=== PATIENT | female | born 1985 | race Caucasian/White ===

== ENCOUNTER 2016-05-05 11:59 | Emergency (ER) | payer OTHER ==
[2016-05-05 14:39] VITALS: BP 137/78
--- NOTE | 2016-05-05 14:58 | UC ---
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 only painful when she is working when she is not at work pain resolves hasn't taken any medication for pain - History of Current Complaint Chief Complaint: UCHeadache Stated Complaint: COUGH,SINUSES Time Seen by Provider: 05/05/16 14:47 Hx Obtained From: Patient Hx Last Menstrual Period: 3 weeks - Allergies/Home Medications Allergies/Adverse Reactions: Allergies Allergy/AdvReac Type Severity Reaction Status Date / Time Hydrocodone Allergy Intermediate ITCHY, Verified 05/05/16 14:39 DISORIENTATION Oxycodone Allergy Intermediate ITCHING Verified 05/05/16 14:39 AND DISOREINTATION Home Medications: Home Medications Ibuprofen TAB* [Motrin TAB* 800 MG] 800 mg PO ONCE PRN 05/05/16 [History Confirmed 05/05/16] PMH/Surg Hx/FS Hx/Imm Hx Previously Healthy: Yes Endocrine History Of: Denies: Diabetes, Thyroid Disease Cardiovascular History Of: Denies: Cardiac Disorders, Hypertension, Pacemaker/ICD Respiratory History Of: Reports: Asthma - exercise induced Denies: COPD GI/ History Of: Denies: Ulcer, Renal Disease - Surgical History Surgical History: Yes Surgery Procedure, Year, and Place: right breast biopsy - 03/22/13; cervical widening 12/05/15; - Family History Known Family History: Positive: None, Cardiac Disease - Social History Occupation: Employed Full-time Lives: With Family Alcohol Use: Occasionally Substance Use Type: None Smoking Status (MU): Never Smoked Tobacco Review of Systems Constitutional: Negative Skin: Negative Eyes: Negative ENT: Sore Throat, Ear Ache, Nasal Discharge Respiratory: Cough Cardiovascular: Negative Gastrointestinal: Negative Genitourinary: Negative Motor: Negative Neurovascular: Negative Musculoskeletal: Other: - right leg pain Neurological: Negative Psychological: Negative All Other Systems Reviewed And Are Negative: Yes Physical Exam Triage Information Reviewed: Yes Appearance: No Pain Distress, Well-Nourished Vital Signs: Initial Vital Signs Temp 98.3 F 05/05/16 14:30 Pulse 84 05/05/16 14:30 Resp 18 05/05/16 14:30 BP 137/78 05/05/16 14:30 Pulse Ox 98 05/05/16 14:30 Vital Signs Reviewed: Yes Eyes: Positive: Conjunctiva Clear, Other: - right lower lid with small stye ENT: Positive: Pharyngeal erythema, Nasal congestion, Nasal drainage, TM bulging , Other: - frontal sinus tenderess. Negative: TM red, Tonsillar swelling, Tonsillar exudate Neck: Positive: No Lymphadenopathy Respiratory: Positive: Lungs clear, Normal breath sounds, No respiratory distress Cardiovascular: Positive: RRR, No Murmur, Pulses Normal Abdomen Description: Positive: Nontender, Soft Bowel Sounds: Positive: Present Musculoskeletal: Positive: No Edema, Other: - RLE- full ROM, non tender Neurological: Positive: Alert Psychological Exam: Normal Skin Exam: Normal Throat Pain/Nasal Course/Dx - Course Course Of Treatment: exam completed - will treat for sinusitis. warm compress BID to stye. right leg pain not present at this time- recommend followup with PCP - Differential Dx/Diagnosis Differential Diagnosis/HQI/PQRI: Sinusitis, URI, Other - muscle strain Provider Diagnoses: sinusitis. right leg pain. stye in right eye Discharge - Discharge Plan Condition: Stable Disposition: HOME Prescriptions: Amoxicillin/Clavulanate TAB* [Augmentin TAB 875*] 875 mg PO BID #20 tab Patient Education Materials: Sinusitis (ED), Leg Pain (ED), Stye (ED) Referrals: [facility] [place] [facility] REFERR[facility] [Outside] Additional Instructions: Start antibiotic as directed Review your discharge instructions about sinusitis Your leg pain may be caused from working all day on your feet on concrete floor start wearing compression stockings while at work and take ibuprofen as needed for pain please call the physician referral number to find a primary care provider If your symptoms do not improve please call your primary care provider or return to urgent care
== END 2016-05-05 15:16 | disposition home or self-care (01) ==
LOC: UCCORT 11:59
DX: J32.1 Chronic frontal sinusitis (principal); M79.604 Pain in right leg; H00.012 Hordeolum externum right lower eyelid; Z88.5 Allergy status to narcotic agent; J45.990 Exercise induced bronchospasm
CPT/HCPCS: 99212; G0463

== ENCOUNTER 2016-08-19 09:26 | Emergency (ER) | payer SELFPAY ==
[2016-08-19 10:01] VITALS: BP 127/66
--- NOTE | 2016-08-19 10:30 | UC ---
Abdominal Pain Female HPI - HPI Summary HPI Summary: abdominal pain x 1 year, pain is at the epigastric area , dull pain, no radiation worse over the past few days , mild increase in pain when eating, no n/v/d/c , no urinary sx. - History of Current Complaint Chief Complaint: UCAbdominalPain Stated Complaint: ABD PAIN,FEVER Time Seen by Provider: 08/19/16 09:42 Hx Obtained From: Patient Hx Last Menstrual Period: 08/15/16 Onset/Duration: Gradual Onset, Lasting Weeks - lasting one year, Still Present, Worse Since - past 2 days Timing: Constant Severity Initially: Moderate Severity Currently: Moderate Location: Epigastric Radiates: No Character: Aching, Dull Aggravating Factor(s): Food Alleviating Factor(s): Nothing Associated Signs and Symptoms: Negative: Diaphoresis, Fever, Cough, Chest Pain, Dizzy, Back Pain, Constipation, Blood in Stool, Urinary Symptoms, Decreased Appetite, Vaginal Bleeding, Vaginal Discharge, Nausea, Vomiting, Diarrhea Allergies/Adverse Reactions: Allergies Allergy/AdvReac Type Severity Reaction Status Date / Time Hydrocodone Allergy Intermediate ITCHY, Verified 08/19/16 09:48 DISORIENTATION Oxycodone Allergy Intermediate ITCHING Verified 08/19/16 09:48 AND DISOREINTATION PMH/Surg Hx/FS Hx/Imm Hx Endocrine History Of: Denies: Diabetes, Thyroid Disease Cardiovascular History Of: Denies: Cardiac Disorders, Hypertension, Pacemaker/ICD Respiratory History Of: Reports: Asthma - exercise induced Denies: COPD GI/ History Of: Denies: Ulcer, Renal Disease - Surgical History Surgical History: Yes Surgery Procedure, Year, and Place: right breast biopsy - 03/22/13; cervical widening 12/05/15; - Family History Known Family History: Positive: None, Cardiac Disease - Social History Alcohol Use: Occasionally Substance Use Type: None Smoking Status (MU): Never Smoked Tobacco Review of Systems Constitutional: Negative Skin: Negative Eyes: Negative ENT: Negative Respiratory: Negative Gastrointestinal: Abdominal Pain Genitourinary: Negative All Other Systems Reviewed And Are Negative: Yes Physical Exam Triage Information Reviewed: Yes Appearance: Well-Appearing, Well-Nourished, Pain Distress Vital Signs: Initial Vital Signs Temp 97.8 F 08/19/16 09:40 Pulse 85 08/19/16 09:40 Resp 14 08/19/16 09:40 BP 127/66 08/19/16 09:40 Pulse Ox 100 08/19/16 09:40 Eye Exam: Normal Eyes: Positive: Conjunctiva Clear ENT: Positive: Normal ENT inspection, Hearing grossly normal, Pharynx normal Neck: Positive: Supple, Nontender, No Lymphadenopathy Respiratory: Positive: Chest non-tender, Lungs clear, Normal breath sounds Cardiovascular: Positive: RRR, No Murmur, Pulses Normal Abdomen Description: Positive: No Organomegaly, Soft, Other: - epigastric tenderness. Negative: CVA Tenderness (R), CVA Tenderness (L), Distended, Guarding Bowel Sounds: Positive: Present Skin Exam: Normal Abd Pain Female Course/Dx - Differential Dx/Diagnosis Provider Diagnoses: epigastric abdominal pain. gastritis Discharge - Discharge Plan Condition: Stable Disposition: HOME Prescriptions: Omeprazole 40 mg PO DAILY WITH MEAL #30 cap Patient Education Materials: Gastritis (ED) Referrals: No Primary Care Phys,NOPCP [Primary Care Provider] - 7 Days Additional Instructions: follow up with your pcp in one week
--- NOTE | 2016-08-19 11:48 | RAD ---
Indication: Abdominal pain, right upper quadrant pain. Real-time sonography of the right upper quadrant was performed. Liver is normal in size. No focal lesions or intrahepatic ductal dilatation is noted. The gallbladder demonstrates no gallstones, pericholecystic fluid or wall thickening. Common duct measures 2 mm. The right kidney measures 10.0 x 4.9 x 5.2 cm. No hydronephrosis is noted. The pancreatic head, neck and proximal body are unremarkable. Aorta and inferior vena cava are unremarkable. IMPRESSION: No evidence of cholelithiasis or biliary duct dilatation is noted.
== END 2016-08-19 12:01 | disposition home or self-care (01) ==
LOC: UCCORT 09:26
DX: R10.13 Epigastric pain (principal); K29.70 Gastritis, unspecified, without bleeding; J45.909 Unspecified asthma, uncomplicated; Z88.5 Allergy status to narcotic agent
CPT/HCPCS: 76705; 99212; G0463

== ENCOUNTER 2016-12-15 11:35 | Emergency (ER) | payer OTHER ==
[2016-12-15 11:50] VITALS: BP 115/72
--- NOTE | 2016-12-15 12:11 | UC ---
Abdominal Pain Female HPI - HPI Summary HPI Summary: epigastric abdominal pain x 6 month off and on , abdominal US normal in July , not improving with PPI - History of Current Complaint Chief Complaint: UCAbdominalPain Stated Complaint: MID LOWER ABDOMINAL PAIN Time Seen by Provider: 12/15/16 11:51 Hx Obtained From: Patient Hx Last Menstrual Period: 11/28/16 ?: No Onset/Duration: Gradual Onset, Lasting Weeks Timing: Intermittent Episodes Lasting: - 3 hrs Severity Initially: Severe Severity Currently: Moderate Location: Epigastric Radiates: No Character: Burning, Sharp Aggravating Factor(s): Food Alleviating Factor(s): Nothing Associated Signs and Symptoms: Negative: Diaphoresis, Fever, Cough, Chest Pain, Dizzy, Back Pain, Constipation, Blood in Stool, Urinary Symptoms, Decreased Appetite, Vaginal Bleeding, Vaginal Discharge, Nausea, Vomiting, Diarrhea Allergies/Adverse Reactions: Allergies Allergy/AdvReac Type Severity Reaction Status Date / Time Hydrocodone Allergy Intermediate ITCHY, Verified 12/15/16 11:50 DISORIENTATION Oxycodone Allergy Intermediate ITCHING Verified 12/15/16 11:50 AND DISOREINTATION Home Medications: Home Medications NK [No Home Medications Reported] 12/15/16 [History Confirmed 12/15/16] PMH/Surg Hx/FS Hx/Imm Hx Respiratory History: Asthma - Surgical History Surgical History: Yes Surgery Procedure, Year, and Place: right breast biopsy - 03/22/13; cervical widening 12/05/15; - Family History Known Family History: Positive: None, Cardiac Disease - Social History Alcohol Use: Occasionally Substance Use Type: None Smoking Status (MU): Never Smoked Tobacco - Immunization History Most Recent Influenza Vaccination: no Review of Systems Constitutional: Negative Skin: Negative Eyes: Negative ENT: Negative Respiratory: Negative Gastrointestinal: Abdominal Pain Is Patient Immunocompromised?: No All Other Systems Reviewed And Are Negative: Yes Physical Exam Triage Information Reviewed: Yes Appearance: Well-Appearing, No Pain Distress, Well-Nourished Vital Signs: Initial Vital Signs Temp 97.5 F 12/15/16 11:45 Pulse 79 12/15/16 11:45 Resp 14 12/15/16 11:45 BP 115/72 12/15/16 11:45 Pulse Ox 100 12/15/16 11:45 Vital Signs Reviewed: Yes Eye Exam: Normal Eyes: Positive: Conjunctiva Clear ENT: Positive: Normal ENT inspection, Hearing grossly normal, Pharynx normal Neck: Positive: Supple, Nontender, No Lymphadenopathy Respiratory: Positive: Chest non-tender, Lungs clear, Normal breath sounds Cardiovascular: Positive: RRR, No Murmur, Pulses Normal Abdomen Description: Positive: No Organomegaly, Soft, Other: - epigastric tenderness. Negative: CVA Tenderness (R), CVA Tenderness (L), Distended, Guarding Bowel Sounds: Negative: Present Musculoskeletal Exam: Normal Skin Exam: Normal Abd Pain Female Course/Dx - Differential Dx/Diagnosis Provider Diagnoses: epigastric abdominal pain Discharge - Discharge Plan Condition: Stable Disposition: HOME Patient Education Materials: Chronic Abdominal Pain (ED) Referrals: Jaron Pike MD [Medical Doctor] - No Primary Care Phys,NOPCP [Primary Care Provider] - Additional Instructions: chronic abdominal pain , normal abd US , not improving with PPI please call the GI MD krishna for eval and tx.
== END 2016-12-15 12:30 | disposition home or self-care (01) ==
LOC: UCCORT 11:35
DX: R10.13 Epigastric pain (principal); Z32.02 Encounter for pregnancy test, result negative; J45.909 Unspecified asthma, uncomplicated; Z88.5 Allergy status to narcotic agent
CPT/HCPCS: 81003; 84702; 99211; G0463

== ENCOUNTER 2017-02-25 15:10 | Emergency (ER) | payer OTHER ==
--- NOTE | 2017-02-25 16:16 | UC ---
Lower Extremity/Ankle HPI - HPI Summary HPI Summary: 31 year old female presents with left heel pain. - History of Current Complaint Stated Complaint: LEFT HEEL INJ Time Seen by Provider: 02/25/17 16:15 Hx Obtained From: Patient Hx Last Menstrual Period: 11/28/16 Onset/Duration: Sudden Onset Severity Initially: Moderate Severity Currently: Moderate Pain Scale Used: 0-10 Numeric - 5 - Allergies/Home Medications Allergies/Adverse Reactions: Allergies Allergy/AdvReac Type Severity Reaction Status Date / Time Hydrocodone Allergy Intermediate ITCHY, Verified 02/25/17 16:21 DISORIENTATION Oxycodone Allergy Intermediate ITCHING Verified 02/25/17 16:21 AND DISOREINTATION Home Medications: Home Medications Ibuprofen TAB* [Motrin TAB* 800 MG] 800 mg PO ONCE PRN 02/25/17 [History Confirmed 02/25/17] PMH/Surg Hx/FS Hx/Imm Hx Previously Healthy: Yes - Surgical History Surgical History: Yes Surgery Procedure, Year, and Place: right breast biopsy - 03/22/13; cervical widening 12/05/15; - Family History Known Family History: Positive: None, Cardiac Disease - Social History Alcohol Use: Occasionally Substance Use Type: None Smoking Status (MU): Never Smoked Tobacco - Immunization History Most Recent Influenza Vaccination: no Review of Systems Constitutional: Negative Skin: Negative Eyes: Negative ENT: Negative Respiratory: Negative Cardiovascular: Negative Gastrointestinal: Negative Genitourinary: Negative Motor: Negative Neurovascular: Negative Musculoskeletal: Other: - left heel pain Neurological: Negative Psychological: Negative All Other Systems Reviewed And Are Negative: Yes Physical Exam Triage Information Reviewed: Yes Vital Signs Reviewed: Yes Eye Exam: Normal ENT Exam: Normal Dental Exam: Normal Neck exam: Normal Neck: Positive: 1 Respiratory Exam: Normal Cardiovascular Exam: Normal Abdominal Exam: Normal Musculoskeletal: Positive: Other: - left heel pain left plantar ligament pain Neurological Exam: Normal Psychological Exam: Normal Skin Exam: Normal Lower Extremity Course/Dx - Differential Dx/Diagnosis Provider Diagnoses: left plantar ligament pain. heel spur Discharge - Discharge Plan Condition: Stable Disposition: HOME Prescriptions: Methylprednisolone [Medrol Dosepak 4 MG*] 4 mg PO .SEE RODOLFO INSTRUCTION #21 tab Patient Education Materials: Plantar Fasciitis (ED), Heel Spur (ED) Referrals: José Antonio Prakash [Physical Therapist] - No Primary Care Phys,NOPCP [Primary Care Provider] -
[2017-02-25 16:21] VITALS: BP 130/65
--- NOTE | 2017-02-25 16:50 | RAD ---
INDICATION: Calcaneal pain. No trauma. COMPARISON: None TECHNIQUE: AP, lateral, and oblique views were obtained. FINDINGS: There are no acute bony findings. There is a small Achilles calcaneal spur. There is presumed soft tissue artifact on one image is likely related to ointment on the skin. IMPRESSION: NO ACUTE BONY FINDINGS. SMALL ACHILLES CALCANEAL SPUR.
== END 2017-02-25 17:08 | disposition home or self-care (01) ==
LOC: UCCORT 15:10
DX: M79.672 Pain in left foot (principal); M77.32 Calcaneal spur, left foot; Z88.5 Allergy status to narcotic agent
CPT/HCPCS: 99212; G0463

== ENCOUNTER 2017-03-17 14:44 | Emergency (ER) | payer OTHER ==
[2017-03-17 16:09] VITALS: BP 128/84
--- NOTE | 2017-03-17 16:11 | UC ---
Respiratory Complaint HPI - HPI Summary HPI Summary: 31 y/o female PMHX asthma presents to the urgent care c/o productive cough, nasal congestion, DAVID, chills, and low grade fever for the past week. Pt reports she is producing a green phlegm with streaks of blood. She also has a sore throat. Pain is 5/10 with swallowing. She has not taking anything to alleviate symptoms. Pt denies SOB, wheezing, chest pain, N/v/d, abdominal pain. LMP: 03/11 - History of Current Complaint Chief Complaint: UCRespiratory Stated Complaint: COLD/CHEST PRECIOUS Time Seen by Provider: 03/17/17 16:03 Hx Last Menstrual Period: 03/11/17 ?: No Onset/Duration: Gradual Onset, Lasting Weeks - 1 week, Still Present, Worse Since - yesterday Timing: Constant Severity Initially: Mild Severity Currently: Moderate Pain Intensity: 5 Pain Scale Used: 0-10 Numeric Character: Cough: Productive, Sputum Description: - green with streaks of blood Aggravating Factors: Recumbent Position Alleviating Factors: Nothing Associated Signs And Symptoms: Positive: Fever, Chills, Nasal Congestion, Sinus Discomfort. Negative: Wheezing - Risk Factors Pulmonary Embolism Risk Factors: Negative Cardiac Risk Factors: Negative Pseudomonas Risk Factors: Negative Tuberculosis Risk Factors: Negative - Allergies/Home Medications Allergies/Adverse Reactions: Allergies Allergy/AdvReac Type Severity Reaction Status Date / Time Hydrocodone Allergy Intermediate ITCHY, Verified 03/17/17 16:09 DISORIENTATION Oxycodone Allergy Intermediate ITCHING Verified 03/17/17 16:09 AND DISOREINTATION PMH/Surg Hx/FS Hx/Imm Hx Previously Healthy: Yes Respiratory History: Asthma - Surgical History Surgical History: Yes Surgery Procedure, Year, and Place: right breast biopsy - 03/22/13; cervical widening 12/05/15; - Family History Known Family History: Positive: Cardiac Disease, Diabetes - Social History Occupation: Employed Full-time Lives: With Family Alcohol Use: Occasionally Substance Use Type: None Smoking Status (MU): Never Smoked Tobacco - Immunization History Most Recent Influenza Vaccination: no Review of Systems Constitutional: Fever, Chills Skin: Negative Eyes: Negative ENT: Sore Throat, Ear Ache, Nasal Discharge Respiratory: Cough - productive with green phlegm Cardiovascular: Negative Gastrointestinal: Negative Genitourinary: Negative Motor: Negative Neurovascular: Negative Musculoskeletal: Negative Neurological: Negative Psychological: Negative Is Patient Immunocompromised?: No All Other Systems Reviewed And Are Negative: Yes Physical Exam Triage Information Reviewed: Yes Vital Signs: Initial Vital Signs Temp 97.7 F 03/17/17 16:05 Pulse 78 03/17/17 16:05 Resp 16 03/17/17 16:05 BP 128/84 03/17/17 16:05 Pulse Ox 100 03/17/17 16:05 - Additional Comments Vital Signs Reviewed: Yes General: well developed, well nourished female sitting in the examining table w/ o any apparent distress Eyes: Positive: Conjunctiva Clear - PERRLA, EOMI, fundi grossly normal ENT: Positive: Normal ENT inspection, Hearing grossly normal, Pharynx normal, Nasal congestion - edematous and erythematous nasal mucosa, Nasal drainage - yellowish drainage, TMs normal. Negative: Tonsillar swelling, Tonsillar exudate Neck: Positive: Supple, Nontender, No Lymphadenopathy Respiratory: no orthopnea or dyspnea. Able to speak in full sentences, no retractions or accessory muscle use, no tripod position, stridor, or head bobbing. breath sounds present bilaterally, B/L upper posterior lungs with scattered rhonchi, no wheezes, crackles, rales. Cardiovascular: Positive: RRR, No Murmur, Pulses Normal, Brisk Capillary Refill Abdomen Description: Positive: Nontender, No Organomegaly, Soft. Negative: CVA Tenderness (R), CVA Tenderness (L) Bowel Sounds: Positive: Present Musculoskeletal Exam: Normal Musculoskeletal: Positive: Strength Intact, ROM Intact, No Edema Neurological Exam: Normal Psychological Exam: Normal Skin Exam: Normal UC Diagnostic Evaluation - Laboratory O2 Sat by Pulse Oximetry: 100 Respiratory Course/Dx - Course Course Of Treatment: 31 y/o female PMHX asthma presents to the urgent care c/o productive cough, nasal congestion, DVAID, chills, and low grade fever for the past week. Pt reports she is producing a green phlegm with streaks of blood. She also has a sore throat. Pain is 5/10 with swallowing. She has not taking anything to alleviate symptoms. Pt denies SOB, wheezing, chest pain, N/V/D abdominal pain. LMP: 03/11/2017. Hx obtained. Pt with posterior B/L lungs with scattered rhonchi on examiantion. Chest X-ray ordered: impression:No cardiopulmonary disease observed. Pt with Acute bronchitis on examination. Pt Rx Z-rodolfo PO and Albuterol inhaler to alleviate bronchospasm. Pt advised to increase fluid intake and eat well. if not improvement or worsening of symptoms to return to the urgent care or f/u with PCP for further management. pt understood and agreed with plan of care. - Differential Dx/Diagnosis Differential Diagnosis/HQI/PQRI: Asthma, Bronchitis, Influenza, Laryngitis, Lower Resp Infection, Sinusitis, Other - URI, pharyngitis Provider Diagnoses: 1- Acute bronchits Discharge - Discharge Plan Condition: Stable Disposition: HOME Prescriptions: Albuterol HFA INHALER* [Ventolin HFA Inhaler*] 1 - 2 puff INH Q6H PRN #1 mdi PRN Reason: Cough Azithromyxin RODOLFO (NF) [Z-Rodolfo (Zithromax) 250 mg tabs #6] 2 tab PO .TODAY, THEN 1 DAILY #6 tab Benzonatate CAP* [Tessalon 100 MG CAP*] 100 mg PO TID #15 cap Patient Education Materials: Acute Bronchitis (ED) Forms: *Work Release Referrals: [facility] [place] [facility] REFERR[facility] [Outside] - 3 Days Additional Instructions: 1-Please take full course of antibiotic to avoid resistance. 2-Take Tessalon PO tabs as directed and use the albuterol inhaler to alleviate sough. Increase fluid intake, rest and eat well. 3- If symptoms do not improve or worsen or your develop SOB with fever and severe wheezing please go immediately to the ER further evaluation and treatment. 4- F/u with your PCP in 2-3 days for further management
--- NOTE | 2017-03-17 17:04 | RAD ---
INDICATION: Productive cough COMPARISON: January 27, 2011 TECHNIQUE: PA and lateral dual-energy views were obtained. FINDINGS: Bones/Soft Tissues: There are no acute bony findings. Cardiomediastinal: The cardiomediastinal silhouette is normal. Lungs: There are no infiltrates. Pleura: There are no pleural effusions. Other: None IMPRESSION: NO ACTIVE DISEASE.
== END 2017-03-17 17:27 | disposition home or self-care (01) ==
LOC: UCCORT 14:44
DX: J20.9 Acute bronchitis, unspecified (principal); J45.909 Unspecified asthma, uncomplicated; Z88.5 Allergy status to narcotic agent
CPT/HCPCS: 71020; 99211; G0463

== ENCOUNTER 2017-07-03 10:44 | Emergency (ER) | payer OTHER ==
[2017-07-03 11:04] VITALS: BP 116/64
--- NOTE | 2017-07-03 11:09 | UC ---
Neck Pain HPI - HPI Summary HPI Summary: Pt with upper back pain x 2 days. Pt states thinks lifted something but unsure Pain increased with movement. no cp, sob, abd pain No n/v/d no fever, chills Pt took 200mg Motrin with little relief No rash no paresthesia, weakness no direct trauma pt's medications reviewed this visit - History of Current Complaint Chief Complaint: UCGeneralIllness Stated Complaint: NECK PAIN 2 DAYS Time Seen by Provider: 07/03/17 10:59 Hx Obtained From: Patient Hx Last Menstrual Period: 06/15/17 ?: No Onset/Duration Of Injury/Symptoms: Days Mechanism Of Injury: No Known Trauma Pain Intensity: 8 - Allergies/Home Medications Allergies/Adverse Reactions: Allergies Allergy/AdvReac Type Severity Reaction Status Date / Time hydrocodone Allergy Itching Verified 07/03/17 10:59 And Disorientation oxycodone Allergy Itching Verified 07/03/17 10:59 and Disorientation PMH/Surg Hx/FS Hx/Imm Hx Previously Healthy: Yes - Surgical History Surgical History: Yes Surgery Procedure, Year, and Place: right breast biopsy - 03/22/13; cervical widening 12/05/15; - Family History Known Family History: Positive: None, Cardiac Disease, Diabetes - Social History Occupation: Employed Full-time Lives: With Family Alcohol Use: Occasionally Substance Use Type: None Smoking Status (MU): Never Smoked Tobacco - Immunization History Most Recent Influenza Vaccination: no Review Of Systems Constitutional: Positive: Negative Respiratory: Positive: Negative Gastrointestinal: Positive: Negative Musculoskeletal: Positive: Other: - back pain Neurological: Positive: Negative All Other Systems Reviewed And Are Negative: Yes Physical Exam Triage Information Reviewed: Yes Appearance: Well-Appearing, No Pain Distress Vital Signs: Initial Vital Signs Temp 97.5 F 07/03/17 11:00 Pulse 62 07/03/17 11:00 Resp 16 07/03/17 11:00 BP 116/64 07/03/17 11:00 Pulse Ox 100 07/03/17 11:00 Vital Signs Reviewed: Yes Eye Exam: Normal Eyes: Positive: Conjunctiva Clear ENT Exam: Normal ENT: Positive: Normal ENT inspection, Hearing grossly normal, Pharynx normal, TMs normal Dental Exam: Normal Neck exam: Normal Neck: Positive: Supple, Nontender, No Lymphadenopathy Respiratory Exam: Normal Respiratory: Positive: Chest non-tender, Lungs clear, Normal breath sounds, No respiratory distress, No accessory muscle use Cardiovascular Exam: Normal Cardiovascular: Positive: RRR, No Murmur Abdominal Exam: Normal Abdomen Description: Positive: Nontender, No Organomegaly Bowel Sounds: Positive: Present Musculoskeletal: Positive: Other: - No pain c/t/l/s Full AROM c spine mild paraspinal discomfort upper thoracis R>L Full AROM upper ext with mild discomfort in back Neurological Exam: Normal Psychological Exam: Normal Skin Exam: Normal Neck Pain Course/Dx - Course Course Of Treatment: pt with paraspinal thoracic muscle pain s/p lifting 2 days ago. pt underdosing analgesia. reviewed motrin/apap. heat. stretch. work note. PT referrral - Differential Dx/Diagnosis Provider Diagnoses: thoracis muscle strain Discharge - Sign-Out/Discharge Documenting (check all that apply): Discharge - Discharge Plan Condition: Stable Disposition: HOME Prescriptions: Cyclobenzaprine TAB* [Flexeril 10 MG TAB*] 5 mg PO BID PRN #10 tab PRN Reason: muscle spasm Ibuprofen TAB* [Motrin TAB* 600 MG] 600 mg PO Q6H PRN #30 tab PRN Reason: Pain Patient Education Materials: Neck Pain (ED) Forms: *Work Release Referrals: Cedrick Rivas PA [Primary Care Provider] - Additional Instructions: - Okay to alternate ibuprofen (Advil, Motrin) 600mg and Tylenol product (Tylenol ) every 3hours as needed for pain. Take with food. Do NOT take for more than 4- [address], operate machinery or drink alcohol while taking codeine This medication may cause constipation - use a stool softner as needed - use muscle relaxant as prescribed - this will likely cause drowsiness, use with caution - apply moist heat to your neck, 2-3 times a day. Once your muscles are warm, slow gentle stretching exercises -- schedule a follow-up appointment with physical therapy if your symptoms persist - if you develop weakness or tingling in your arms, fever, vomiting or any other concerns you should go straight to the emergency department for further evaluation and treatment - Billing Disposition and Condition Condition: STABLE Disposition: HOME
== END 2017-07-03 11:34 | disposition home or self-care (01) ==
LOC: UCCORT 10:44
DX: S29.011A Strain of muscle and tendon of front wall of thorax, initial encounter (principal); X50.0XXA Overexertion from strenuous movement or load, initial encounter; Y93.9 Activity, unspecified; Y92.9 Unspecified place or not applicable; Z88.5 Allergy status to narcotic agent
CPT/HCPCS: 99212; G0463

== ENCOUNTER 2018-01-13 12:59 | Emergency (ER) | payer OTHER ==
[2018-01-13] MEDS ORDERED: PROCHLORPERAZINE INJ 5 MG/ML 2 ML VIAL IV ONE (13:26)
[2018-01-13] MEDS ORDERED: NS 0.9% 1000 ML* 1,000 ML IV ONE (13:26)
[2018-01-13] MEDS ORDERED: diPHENhydraMINE IV* 50 MG/ML 1 ml VIAL (BENADRYL) IV ONE (13:26)
[2018-01-13] MEDS ORDERED: Dexamethasone IV* 4 MG/ML 1 ML (4 MG) IV SLOW PU ONE (13:33)
[2018-01-13 14:16] LABS: ABS Basophils 0.1 10^3/ul (0-0.2); ABS Eosinophils 0.1 10^3/ul (0-0.6); ABS Lymphocytes 2.5 10^3/ul (1.0-4.8); ABS Monocytes 0.9 10^3/ul (0-0.8); ABS Neutrophils 4.2 10^3/ul (1.5-7.7); ABS Nucleated RBC 0 10^3/ul; Hematocrit 37 % (35-47); Hemoglobin 12.8 g/dl (12.0-16.0); Lymphocyte % 32.5 % (25-47); Mean Corpuscular HGB Conc 34 g/dl (31-36); Mean Corpuscular Hemoglobin 29 pg (27-31); Mean Corpuscular Volume 83 fL (80-97); Mean Platelet Volume 7.8 um3 (7.4-10.4); Nucleated Red Blood Cells % 0; Platelet Count 329 10^3/ul (150-450); Red Blood Count 4.46 10^6/ul (4.00-5.40); Red Cell Distribution Width 13 % (10.5-15); White Blood Count 7.7 10^3/ul (3.5-10.8)
--- NOTE | 2018-01-13 14:42 | RAD ---
HISTORY: Headache COMPARISONS: None TECHNIQUE: Multiple contiguous axial CT scans were obtained of the head without intravenous contrast. FINDINGS: HEMORRHAGE/INFARCT: There is no hemorrhage or acute infarct. MASSES/SHIFT: There is no mass or shift. EXTRA-AXIAL SPACES: There are no extra-axial fluid collections. SULCI AND VENTRICLES: The sulci and ventricles are normal in size and position for the patient's stated age. CEREBRUM: There are no focal parenchymal abnormalities. BRAINSTEM: There are no focal parenchymal abnormalities. CEREBELLUM: There are no focal parenchymal abnormalities. VESSELS: The vessels are grossly normal. PARANASAL SINUSES: The paranasal sinuses are clear. ORBITS: The orbits are unremarkable. BONES AND SOFT TISSUE: No bone or soft tissue abnormalities are noted. OTHER: None IMPRESSION: NO ACUTE INTRACRANIAL PATHOLOGY.
[2018-01-13] MEDS ORDERED: Ketorolac INJ* 30 MG/ML 1 ML VIAL IV PUSH ONE (14:43)
[2018-01-13 14:51] LABS: EGFR Non-African American 129.8 (>60)
[2018-01-13 16:56] VITALS: BP 116/70
--- NOTE | 2018-01-13 17:16 | ED ---
Headache - HPI Summary HPI Summary: Patient is a 32-year-old female who presents emergency department for diffuse headache 4 days. Patient states she does have history of headaches and headache today feels similar. She states started 4 days ago was maximal intensity at onset. She admits to photophobia, blurred vision and nausea. She states that she was recently diagnosed with a likely pituitary tumor as her prolactin has been high. She recently saw surveyor geodetic, Dr. Cedeño, and is scheduled for an MRI in 2 days. Symptoms are moderate in severity. Lights and noise make symptoms worse. Nothing makes symptoms better. Denies past medical history otherwise. - History Of Current Complaint Chief Complaint: EDHeadache Stated Complaint: HEAD PAIN Time Seen by Provider: 01/13/18 13:06 Hx Obtained From: Patient, Family/Cosmetic Surgeon Hx Last Menstrual Period: 06/15/17 - Allergies/Home Medications Allergies/Adverse Reactions: Allergies Allergy/AdvReac Type Severity Reaction Status Date / Time hydrocodone Allergy Itching Verified 01/13/18 13:04 And Disorientation oxycodone Allergy Itching Verified 01/13/18 13:04 and Disorientation PMH/Surg Hx/FS Hx/Imm Hx Previously Healthy: Yes Endocrine/Hematology History: Denies: Hx Diabetes, Hx Thyroid Disease Cardiovascular History: Denies: Hx Hypertension, Hx Pacemaker/ICD Respiratory History: Reports: Hx Asthma - exercise induced Denies: Hx Chronic Obstructive Pulmonary Disease (COPD) GI History: Denies: Hx Ulcer History: Denies: Hx Renal Disease Sensory History: Denies: Hx Hearing Aid Neurological History: Reports: Other Neuro Impairments/Disorders - PAIN CLINIC PATIENT Psychiatric History: Denies: Hx Panic Disorder - Surgical History Surgery Procedure, Year, and Place: right breast biopsy - 03/22/13; cervical widening 12/05/15; Infectious Disease History: No Infectious Disease History: Denies: Hx Clostridium Difficile, Hx Hepatitis, Hx Human Immunodeficiency Virus (HIV), Hx of Known/Suspected MRSA, Hx Shingles, Hx Tuberculosis, Hx Known/ Suspected VRE, Hx Known/Suspected VRSA, History Other Infectious Disease, Traveled Outside the [place] in Last 30 Days - Family History Known Family History: Positive: None, Cardiac Disease, Diabetes - Social History Occupation: Employed Full-time Lives: With Family Alcohol Use: Occasionally Substance Use Type: Reports: None Smoking Status (MU): Never Smoked Tobacco Review of Systems Constitutional: Negative Negative: Fever, Chills Positive: Photophobia, Blurred Vision ENT: Negative Cardiovascular: Negative Positive: Shortness Of Breath Positive: Nausea. Negative: Abdominal Pain, Vomiting Genitourinary: Negative Positive: Headache. Negative: Weakness, Paresthesia, Numbness, Syncope, Slurred Speech All Other Systems Reviewed And Are Negative: Yes Physical Exam Triage Information Reviewed: Yes Vital Signs On Initial Exam: Initial Vitals Temp Pulse Resp BP Pulse Ox 98.2 F 80 18 129/89 99 01/13/18 13:01 01/13/18 13:01 01/13/18 13:01 01/13/18 13:01 01/13/18 13:01 Vital Signs Reviewed: Yes Appearance: Positive: Well-Nourished - Pt. lying in bed with pillow over eyes. Appears uncomfortable but nontoxic. Skin: Positive: Warm, Dry Head/Face: Positive: Normal Head/Face Inspection Eyes: Positive: Normal, EOMI, SELWYN, Conjunctiva Clear ENT: Positive: Pharynx normal, TMs normal Neck: Positive: Supple. Negative: Nuchal Rigidity Respiratory/Lung Sounds: Positive: Clear to Auscultation, Breath Sounds Present Cardiovascular: Positive: Normal, RRR Neurological: Positive: Normal, Alert, Oriented to Person Place, Time, CN Intact II-III, Normal Gait, Facial Symmetry, Speech Normal. Negative: Facial Droop, Ataxic Gait Psychiatric: Positive: Affect/Mood Appropriate - [place] Coma Scale Best Eye Response: 4 - Spontaneous Best Motor Response: 6 - Obeys Commands Best Verbal Response: 5 - Oriented Coma Scale Total: 15 Diagnostics - Vital Signs Vital Signs Temp Pulse Resp BP Pulse Ox 01/13/18 16:55 97.2 F 76 16 116/70 98 01/13/18 13:01 98.2 F 80 18 129/89 99 - Laboratory Lab Results: Lab Results 01/13/18 01/13/18 Range/Units 13:46 13:46 WBC 7.7 (3.5-10.8) 10^3/ul RBC 4.46 (4.00-5.40) 10^6/ul Hgb 12.8 (12.0-16.0) g/dl Hct 37 (35-47) % MCV 83 (80-97) fL MCH 29 (27-31) pg MCHC 34 (31-36) g/dl RDW 13 (10.5-15) % Plt Count 329 (150-450) 10^3/ul MPV 7.8 (7.4-10.4) um3 Neut % (Auto) 54.6 (38-83) % Lymph % (Auto) 32.5 (25-47) % [place] % (Auto) 11.2 H (0-7) % Eos % (Auto) 1.0 (0-6) % Baso % (Auto) 0.7 (0-2) % Absolute Neuts (auto) 4.2 (1.5-7.7) 10^3/ul Absolute Lymphs (auto) 2.5 (1.0-4.8) 10^3/ul Absolute Monos (auto) 0.9 H (0-0.8) 10^3/ul Absolute Eos (auto) 0.1 (0-0.6) 10^3/ul Absolute Basos (auto) 0.1 (0-0.2) 10^3/ul Absolute Nucleated RBC 0 10^3/ul Nucleated RBC % 0 Sodium 139 (135-145) mmol/L Potassium 4.0 (3.5-5.0) mmol/L Chloride 108 (101-111) mmol/L Carbon Dioxide 27 (22-32) mmol/L Anion Gap 4 (2-11) mmol/L BUN 10 (6-24) mg/dL Creatinine 0.55 (0.51-0.95) mg/dL Est GFR ( Amer) 157.0 (>60) Est GFR (Non-Af Amer) 129.8 (>60) BUN/Creatinine Ratio 18.2 (8-20) Glucose 111 H (70-100) mg/dL Calcium 8.9 (8.6-10.3) mg/dL Total Bilirubin 0.30 (0.2-1.0) mg/dL AST 12 L (13-39) U/L ALT 9 (7-52) U/L Alkaline Phosphatase 47 (34-104) U/L Total Protein 6.9 (6.4-8.9) g/dL Albumin 4.1 (3.2-5.2) g/dL Globulin 2.8 (2-4) g/dL Albumin/Globulin Ratio 1.5 (1-3) Result Diagrams: 01/13/18 13:46 01/13/18 13:46 Lab Statement: Any lab studies that have been ordered have been reviewed, and results considered in the medical decision making process. Headache Course/Dx - Course Course Of Treatment: Pt. presenting for evaluation of headache. She is afebrile stable vital signs. She has no neurological deficits on exam. Patient 's symptoms are most consistent with a migraine headache, given concern for patient to pituitary tumor. We'll give migraine cocktail and obtain head CT to rule out bleed or other acute pathology and basic labs.\. Labs and CT scan are unremarkable. I spoke with Dr. Cedeño who recommends MRI of the brain today for able to get it. MRI was ordered but corn lab technician called and stated that patient is scheduled for MRI at another MRI facility because it is better for pituitary evaluation. This was discussed with Dr. cedeño who agrees to wait till Thursday for MRI. He also would like patient to start clofazimine he has rx. Reexamination patient is moving around the room and appears to be more comfortable. She states her headache is improved but is still present mildly. Results were discussed. She is comfortable being discharged home to follow up with MRI on Thursday. She will start new medication as directed. Advised to return to the ear symptoms change or worsen. - Diagnoses Differential Diagnosis/HQI/PQRI: Meningitis, Migraine, Sinus Headache, Subarachnoid Hemorrhage, Tension Headache, Viral Syndrome Provider Diagnoses: Cephalgia Discharge - Sign-Out/Discharge Documenting (check all that apply): Patient Departure - Discharge Plan Condition: Good Disposition: HOME Patient Education Materials: Pituitary Adenoma (ED), General Headache (ED) Forms: *Work Release Referrals: Nacho Cedeño MD [Medical Doctor] - Cedrick Rivas PA [Primary Care Provider] - Additional Instructions: MRI Thursday as scheduled Follow up with Dr. Cedeño as scheduled Return to ER if symptoms change or worsen - Billing Disposition and Condition Condition: GOOD Disposition: Home
== END 2018-01-13 16:55 | disposition home or self-care (01) ==
LOC: ED 12:59
DX: R51 Headache (principal); R06.02 Shortness of breath; R11.0 Nausea; H53.8 Other visual disturbances
CPT/HCPCS: 36415; 70450; 80053; 85025; 96374; 96375; 99284; J0780; J1100; J1200; J1885

== ENCOUNTER 2018-04-22 11:31 | Emergency (ER) | payer OTHER ==
--- OUTSIDE RECORDS SUMMARY | 2018-04-22 12:11 | XMS REPORT | Continuity of Care Document ---
:1985 External Reference #:[id number] Author Name Amy Bullard NP Address [address] [place] [id number] Care Team Providers Name Role Phone Jaspreet Malhotra MD Primary Care Physician Unavailable Payers Type Date Identification Numbers Payment Provider Subscriber Policy Number: [id number] [employer] Juana Shaji PayID: [id number] Pob [id number] [place] [address] Expires: 2015 Policy Number: [id number] Medicaid Pe ([facility]) Juana Shaji PayID: [id number] [address] [place] [address] Advance Directives Description No Information Available Problems Date Description Provider Status Onset: 08/23/2014 Asthma Lolita Cruz NP Active Onset: 03/29/2018 Hyperpituitarism Amy Bullard NP Active Family History Date Family Member(s) Problem(s) Comments General Cancer MGM , hx of cancer, type unknown Father Alive little contact Mother Alive Siblings 1 brother heroin addict Social History Type Date Description Comments Sex Female Education Highest level completed, 9th grade Marital Status Legal Status: Never Work Status Part-Time Employment [employer]. ETOH Use Currently consumes alcohol Tobacco Use Start: Unknown Patient has never smoked Recreational Drug Use Denies Drug Use Tattoo/Piercing Negative For Tattoo Tattoo/Piercing Pierced ears Sun Exposure Uses sunscreen sometimes Condom Use Occasionally Contraceptive Methods Past methods include patch ([facility]) Contraceptive Methods Past methods include ring (Nuva) Age 1st [place] 17 Years Old STD's HPV 2005 STD's Chlamydia 2007 STD's Gonorrhea 2007 Allergies, Adverse Reactions, Alerts Date Description Reaction Status Severity Comments 02/14/2015 Hydrocodone Active 07/18/2014 NKDA Inactive Medications Medication Date Status Form Strength Qnty SIG Indications Ordering Provider Anxiety/Depress 03/29/ Active In [facility] ion Medication 2018 MD Jack Metronidazole 03/29/ Active Tablets 500mg 14tabs one tab by N76.0 In [facility] 2018 mouth twice MD Jack daily x 7 days no etoh Plan B One-Step 12/03/ Active Tablets 1.5mg 1 tab by In [facility] 2016 mouth now MD Jack Nuvaring 11/28/ Active Ring 0.12-0.015 3units insert Genoveva Robin 2016 mg/24HR vaginally Francisca, monthly MARZIPAN MAKER remove in 3 weeks as directed Plan B One-Step 10/02/ Active Tablets 1.5mg 1 tab by Z30.40 In [facility] 2015 mouth now MD Jack Oxycodone HCL / Active Unknown 0000 Metronidazole 05/07/ Hx Tablets 500mg 14tabs take 1 tab N76.0 In [facility] 2015 - twice a day MD Jack 03/29/ by mouth 2018 daily for 7 days Plan B One-Step 09/19/ Hx Tablets 1.5mg 2tabs 1 tab by Z30.012 Lolita 2014 - mouth as one Servies, 05/07/ dose as MARZIPAN MAKER 2016 needed Nuvaring 09/19/ Hx Ring 0.12-0.015 3units insert Z30.40 Lolita 2014 - mg/24HR vaginally Servies, 05/07/ per MARZIPAN MAKER 2016 directions Metronidazole 08/23/ Hx Tablets 500mg 14tabs 1 tab by N76.0 Lolita 2014 - mouth twice Servies, 05/07/ a day MARZIPAN MAKER 2016 Diflucan 07/18/ Hx Tablets 150mg 1tabs 1 tablet by Lolita 2014 - mouth as one Servies, 02/14/ dose. MARZIPAN MAKER 2014 Medications Administered in Office Medication Date Status Form Strength Qnty SIG Indications Ordering Provider Emergency 10/02/ Administered Injection Amy Contraceptive 2015 TAIWO Bullard Emergency 09/19/ Administered Injection Lolita Contraceptive 2014 TAIWO Cruz Emergency 02/27/ Administered Injection Telma Contraceptive 2013 Jacky, RN Immunizations Description No Information Available Vital Signs Date Vital Result Comment 10/03/2015 2:08pm BP Systolic 90 mmHg BP Diastolic 60 mmHg Height 62.75 inches 5'2.75" Weight 157.00 lb BMI (Body Mass Index) 28.0 kg/m2 09/03/2015 2:16pm BP Systolic 102 mmHg BP Diastolic 68 mmHg Weight 160.00 lb 05/07/2015 5:55pm BP Systolic 100 mmHg BP Diastolic 66 mmHg Height 62.75 inches 5'2.75" Weight 159.00 lb BMI (Body Mass Index) 28.4 kg/m2 Last Menstrual Period [id number] 02/14/2015 2:16pm BP Systolic 100 mmHg BP Diastolic 62 mmHg Height 62.75 inches 5'2.75" Weight 157.00 lb BMI (Body Mass Index) 28.0 kg/m2 Last Menstrual Period [id number] 09/19/2014 3:27pm BP Systolic 98 mmHg BP Diastolic 52 mmHg Height 62.75 inches 5'2.75" Weight 151.00 lb BMI (Body Mass Index) 27.0 kg/m2 Last Menstrual Period [id number] 08/23/2014 2:43pm BP Systolic 98 mmHg BP Diastolic 50 mmHg Height 62.75 inches 5'2.75" Weight 152.00 lb BMI (Body Mass Index) 27.1 kg/m2 Last Menstrual Period [id number] Results Test Date Facility Test Result H/L Range Note Wet Prep.... 03/29/2018 [facility] WBC Smear few Clue Cells Vag Fluid Wet Prep many Valerie Wet Prep neg Lactobacillus Wet Prep neg Whiff Wet Prep pos Bacteria Wet Prep na PH Wet Prep 6 Misc Other Test no tric Urinalysis DIP Only.... 10/04/2015 [facility] Urine Leukocyte Esterase QN + Urine Nitrite QN N Urine Blood N Urine PH 6.0 Urine Protein Random N Urine Ketone Random N Urine Glucose QN Random N Laboratory test 10/04/2015 [facility] Test neg finding Urine..... Chlam 09/05/2015 [facility] C.Trachomatis NOT DETECTED Not Detected 1 Trach/Neisseria Rna,Tma Gonorroeae Rna Tma N.Gonorrhoeae Rna,Tma NOT DETECTED Not Detected 2 Laboratory test finding 09/03/2015 [facility] Test Urine..... neg Urinalysis DIP Only.... 09/03/2015 [facility] Urine Leukocyte Esterase QN neg Urine Nitrite QN neg Urine Blood neg Urine PH 5.0 Urine Protein Random neg Urine Ketone Random neg Urine Glucose QN Random neg Urinalysis DIP Only.... 05/07/2015 [facility] Urine Leukocyte Esterase QN N Urine Nitrite QN N Urine Blood N Urine PH 6 Urine Protein Random Tr Urine Ketone Random Tr Urine Glucose QN Random N Laboratory test 05/07/2015 [facility] Test neg finding Urine..... Chlam 05/07/2015 [facility] C.Trachomatis NOT DETECTED Not Detected 3 Trach/Neisseria Rna,Tma Gonorroeae Rna Tma N.Gonorrhoeae Rna,Tma NOT DETECTED Not Detected 4 Thinprep Pap Form Setter Steel Pan Forms 02/14/2015 [facility] Results SEE NOTE 5 W/RFX HPV Mrna E6/E7 Chlam 02/14/2015 [facility] C.Trachomatis NOT DETECTED Not Detected 6 Trach/Neisseria Rna,Tma Gonorroeae Rna Tma N.Gonorrhoeae Rna,Tma NOT DETECTED Not Detected 7 [place] Annual Lab Set 02/14/2015 [facility] HGB Blood.... 13.2 Urinalysis DIP Only.... 02/14/2015 [facility] Urine Leukocyte Esterase QN N Urine Nitrite QN N Urine Blood N Urine PH 7.0 Urine Protein Random Tr Urine Ketone Random Tr Urine Glucose QN Random N Laboratory test finding 02/14/2015 [facility] HIV Rapid... non reactive Wet Prep.... 09/19/2014 [facility] WBC Smear 10-12 Clue Cells Vag Fluid Wet Prep neg Valerie Wet Prep positive Lactobacillus Wet Prep + Whiff Wet Prep neg Bacteria Wet Prep neg PH Wet Prep 4.5 Misc Other Test n/a Laboratory test 08/23/2014 [facility] C.Trachomatis NOT DETECTED Not Detected 8 finding Rna,Tma W/RFX N.Gonorrhoeae Rna,Tma Laboratory test 08/23/2014 [facility] Test negative finding Urine..... 1 This test was performed using the APTIMA COMBO2(R) Assay (GEN-PROBE(R). The analytical performance characteristics of this assay, when used to test SurePath(R) specimens have been determined by [facility]. 2 This test was performed using the APTIMA COMBO2(R) Assay (GEN-PROBE(R). The analytical performance characteristics of this assay, when used to test SurePath(R) specimens have been determined by [facility]. No collection date was received. We have used the date the specimen was received by [facility] as the collection date. If this is incorrect, please contact us at [phone]. 3 This test was performed using the APTIMA COMBO2(R) Assay (GEN-PROBE(R). The analytical performance characteristics of this assay, when used to test SurePath(R) specimens have been determined by [facility]. 4 This test was performed using the APTIMA COMBO2(R) Assay (GEN-PROBE(R). The analytical performance characteristics of this assay, when used to test SurePath(R) specimens have been determined by [facility]. 5 GYNECOLOGICAL CYTOLOGY REPORT Thinprep TIS PAP w/rfx to HPV E6/E7 REPORT STATUS: FINAL CLINICAL INFORMATION: Information not provided LMP: 01-22-15 SLIDES / SOURCE: 1 / Cervix, Endocervix STATEMENT OF ADEQUACY: Satisfactory for evaluation. Endocervical/transformation zone component present. INTERPRETATION/RESULT: Negative for intraepithelial lesion or malignancy. Reactive cellular changes associated with repair. Shift in vaginal aron suggestive of bacterial vaginosis. COMMENT: This Pap test has been evaluated with computer assisted technology. BAND SPLITTER: MERRILL REICH(ASCP) For informational Purposes: All cytology specimens are processed and screened at [facility]. [address] [place] [id number], PCJ, [facility]) For informational Purposes: All cytology specimens are processed and screened at [facility]. [address] [place] [id number] PATHOLOGIST: Ender Barber MD, Board Certified in Anatomic Pathology and Cytopathology (electronic signature) For questions regarding this report call Anatomic Pathology at [phone] Ender Barber MD, Communications Writer [employer] [place], [place] 6 This test was performed using the APTIMA COMBO2(R) Assay (GEN-PROBE(R). The analytical performance characteristics of this assay, when used to test SurePath(R) specimens have been determined by [facility]. 7 This test was performed using the APTIMA COMBO2(R) Assay (GEN-PROBE(R). The analytical performance characteristics of this assay, when used to test SurePath(R) specimens have been determined by [facility]. 8 This test was performed using the APTIMA COMBO2(R) Assay (GEN-PROBE(R). The analytical performance characteristics of this assay, when used to test SurePath(R) specimens have been determined by [facility]. Procedures Description No Information Available Encounters Description No Information Available Plan of Treatment 03/29/2018 - Amy Bullard, NPZ12.4 Encounter for screening for malignant neoplasm of rojrxcT48.0 Acute vaginitisNew Medication:Metronidazole 500 mg - one tab by mouth twice daily x 7 days no etohComments:Abstain for sex while on medication and then use condoms for the following week. Please remember that consistent condom use will help reduce your risk of aquiring a sexually transmitted nzheqhywmA96.09 Encounter for other general counseling and advice on contraceptionComments:Pt has been told by neurology she has elevated Prolactin levels which would make it diffucult to achieve , she would be open to a , I cautioned that given the fact she is currently under therapy for this pitutary tumor she should hold off on a . Pt opinion is that she cannotget .E22.9 Hyperfunction of pituitary gland, unspecified
--- OUTSIDE RECORDS SUMMARY | 2018-04-22 12:11 | XMS REPORT | Continuity of Care Document ---
:1985 External Reference #:[id number] Author Name Jaspreet Roque MD Address [address] [place] [address] Care Team Providers Name Role Phone Jaspreet Roque MD Care Team Information Powder [employer] Unavailable Payers Type Date Identification Numbers Payment Provider Subscriber Policy Number: [id number] Joel Girard Group Number: [id number] [id number] PayID: [id number] [place] [address] Advance Directives Description No Information Available Problems Description No Information Family History Description No Information Available Social History Type Date Description Comments Sex Unknown Marital Status Single Lives With Boyfriend Occupation [email or web address] ETOH Use Occasionally consumes alcohol Tobacco Use Start: Unknown Patient has never smoked Smoking Status Reviewed: 12/08/17 Patient has never smoked Allergies, Adverse Reactions, Alerts Date Description Reaction Status Severity Comments 12/08/2017 Oxycodone Active Hives, Itching 12/08/2017 Hydrocodone Active Hives,Itching Medications Medication Date Status Form Strength Qnty SIG Indications Ordering Provider Amoxicillin 04/07/ Hx Tablets 875mg 20tabs 1 by mouth H92.01 Mya 2018 - twice a day Jaspreet 04/17/ for 10 days 2018 No Active 04/07/ Hx Unknown Medications 2019 - 2018 Naproxen 10/15/ Hx Tablets 500mg 60tabs take 1 Mya 2017 - tablet by Jaspreet 01/11/ mouth twice 2017 daily with food as needed for headaches Ketorolac 10/15/ Hx Tablets 10mg 15tabs 1 pill by Mya Tromethamine 2018 - mouth w/ , Jaspreet, 01/21/ food up to 2017 3 times a day as needed for severe headache No Active Unknown Medications 2017 - 2017 Cabergoline / Hx Tablets 0.5mg 1 By Mouth R94.7 Nacho Bruno 0000 - Twice A MD 2018 Amitriptyline / Hx Tablets 25mg take one G43.909 Nacho Bruno HCL 0000 - tablet by 04/06/ mouth at 2019 bedtime G47.00 Immunizations CPT Code Status Date Vaccine Reaction Lot # [id number] Given 12/08/2017 Tdap (Adacel) Ages 7 And Above Only [id number] Refused 12/08/2017 Afluria Imunization WILL NOT GET Vital Signs Date Vital Result Comment 04/07/2018 4:38pm Body Temperature 98.9 F Weight 186.00 lb Heart Rate 70 /min BP Systolic 126 mmHg BP Diastolic 80 mmHg Respiratory Rate 18 /min Height 63 inches 5'3" O2 % BldC Oximetry 98 % ra BMI (Body Mass Index) 32.9 kg/m2 12/08/2017 2:26pm Weight 166.00 lb Heart Rate 64 /min BP Systolic 122 mmHg BP Diastolic 66 mmHg Respiratory Rate 20 /min Height 63 inches 5'3" BMI (Body Mass Index) 29.4 kg/m2 Results Test Date Facility Test Result H/L Range Note Laboratory test finding 12/16/2017 [facility] Prolactin 88.0 ng/ml 1, 2 Basic (BMP) 12/08/2017 [facility] Sodium 140 mmol/L 135-146 3 Potassium 4.2 mmol/L 3.5-5.2 Chloride# 105 mmol/L 97-110 4 Carbon Dioxide 28 mmol/L 24-34 Glucose 80 mg/dL 70-105 BUN 9 mg/dL 6-26 Creatinine 0.6 mg/dL 0.5-1.4 Calcium 9.2 mg/dL 8.5-10.2 Non Reina Egfr >60 >60 5 Reina Egfr >60 >60 6 Anion Gap 7 mmol/L 5-15 7 Laboratory test finding 12/08/2017 [facility] TSH 0.90 uIU/mL 0.35-4.94 Cholesterol 138 mg/dL 50-199 HDL 52 mg/dL 35-85 8 CBC with Auto Diff-fcmg 12[facility]08[facility]2017 [facility] WBC 9.1 K/uL 4.1-11.0 RBC 4.42 M/uL 4.00-5.40 Hemoglobin 12.3 gm/dL 12.0-16.0 Hematocrit 36.4 % 36.0-47.0 MCV 82.4 fL 80.0-97.0 MCH 27.7 pg 27.0-32.0 MCHC 33.7 g/dL 32.0-36.0 RDW 12.4 % 11.5-14.5 PLT Count 371 K/ul 140-400 MPV 8.2 FL 7.1-10.7 Neutrophil 51.5 % 35.0-75.0 Lymphocyte 37.8 % 16.0-52.0 Monocyte 8.6 % 2.0-10.0 Eosinophil 1.2 % 0.0-5.0 Basophil 0.9 % 0.0-4.0 Abs Neutrophils 4.7 K/uL 2.1-8.0 Abs Lymphocytes 3.4 K/uL 0.8-5.5 Abs Monocytes 0.8 K/uL 0.1-1.0 Abs Eosinophils 0.1 K/uL 0.0-0.5 Abs Basophils 0.1 K/uL 0.0-0.3 Laboratory test 12/08/2017 [facility] Vitamin D 25 32 ng/mL 30-100 9 finding Hydroxy Laboratory test 10/13/2006 N2N/CCD Import Bas% 0.4 % 0.1-1.0 finding Baso # 0.0 K/uL Low 0.1-0.2 Eo% 1.0 % 0.0-5.0 Eos # 0.1 K/uL 0.0-0.5 HCG, Quant 58185.0 mIU/mL 10 Hematocrit 36.0 % 34.0-46.0 Hemoglobin 12.8 gm/dL 11.5-15.5 Jigar# 0.2 0.0-1.5 Jigar% 3.0 % 0.0-4.0 Lymph # 2.0 K/uL 1.2-4.0 Lymph % 27.7 % 17.0-56.0 Mean Cell Volume 83.0 fL 80.0-96.0 Mean Corpuscular HGB 29.5 pg 27.0-33.0 Mean Corpuscular HGB Conc 35.6 g/dL 31.7-36.0 Mean Platelet Volume 6.8 fl 6.6-10.6 [place] # 0.6 K/uL 0.0-0.6 [place] % 8.6 % 0.0-10.0 Neut# 4.2 K/uL 1.8-7.0 Neut% 59.2 % 28.0-68.0 Platelet Count 381 K/uL 150-400 Red Blood Count 4.34 M/uL 3.90-5.20 Red Cell Distri Width %CV 11.7 % 11.6-15.8 White Blood Count 7.2 K/uL 3.4-10.5 Urine Screen 10/13/2006 N2N/CCD Import Urine Bilirubin - Negative Negative Dipstick Urine Blood Negative Negative Urine Clarity Clear Clear Urine Color Yellow Yellow Urine Glucose - Dipstick Negative Negative m Urine Ketone >=80 Negative m High Urine Leuk Esterase Negative Negative Urine Nitrite - Dipstick Negative Negative Urine PH 5.5 Low 6.5-7.5 Urine Protein - Dipstick Negative Negative m Urine Specific Bates >=1.030 1.010-1.030 Urine Urobilinogen - Dipstick 0.2 E.U./dL 0.2-1.0 1 SOON - SHE'LL CALL 2 Prolactin Female Normal Values: Pre-menopausal: 3.3-26.7 ng/mL Post-menopausal:2.7-19.6 ng/mL 3 Updated reference range on new analyzer 4 Updated reference range on new analyzer 5 Concerning GFR Guidelines: Normal function or mild renal disease, if clinically at risk: >/=60 mL/min Moderately decreased: 30-59 Severely decreased: 15-29 Renal failure: <15 Glomerular Filtration Rate (GFR) is estimated based on the MDRD equation, which assumes a steady state for creatinine as recommended by the National Kidney Disease Education Program in conjunction with the National Institutes of Health and the National Kidney Foundation. Clinical conditions in which it may be necessary to measure GFR by using clearance methods include extremes of age and body size, severe malnutrition or obesity, diseases of skeletal muscle, paraplegia or quadriplegia, vegetarian diet, rapidly changing kidney function, and calculation of the dose of potentially toxic drugs that are excreted by the kidneys. 6 Concerning GFR Guidelines for Americans: Normal function or mild renal disease, if clinically at risk: >/=60 mL/min Moderately decreased: 30-59 Severely decreased: 15-29 Renal failure: <15 7 Updated Reference Range 2-2018 8 Per NCEP ATP III Guidelines: Results lower than 40 mg/dL are suggestive of increased risk for coronary artery disease. Results > or=to 60 mg/dL are considered a negative risk factor. 9 Clinical Guidelines for recommended serum 25(OH)Vitamin D Deficient at less than 20 ng/mL Insufficient at 20 to <30 ng/mL Sufficient at 30-100 ng/mL Toxicity at greater than 100 ng/mL 10 APPROXIMATE GESTATIONAL AGE AND BHCG RANGE 0-1 WEEK.......................0 -50 mIU/mL 1-2 WEEKS....................40-300 mIU/mL 2-3 WEEKS.................100-1,000 mIU/mL 3-4 WEEKS.................500-6,000 mIU/mL 1-2 MONTHS............5,000-200,000 mIU/mL 2-3 MONTHS...........10,000-100, 000 mIU/mL 2nd TRIMESTER..........3,000-50,000 mIU/mL 3rd TRIMESTER..........1,000-50,000 mIU/mL Procedures Description No Information Available Encounters Type Date Location Provider Dx Diagnosis Office Visit 12/08/2017 [facility] Jaspreet Roque, Z00.00 Encntr for general 2:30p adult medical exam w/o abnormal findings N92.6 Irregular menstruation, unspecified Z13.220 Encounter for screening for lipoid disorders J45.990 Exercise induced bronchospasm Z23 Encounter for immunization Z68.29 Body mass index (BMI) 29.0-29.9, adult Plan of Treatment Future Appointment(s):12/09/2018 10:30 am - Jaspreet Roque MD at [facility]2018 - Jaspreet Roque MDH92.01 Otalgia, RIGHT earNew Medication: Amoxicillin 875 mg - 1 by mouth twice a day for 10 daysFollow up:Follow up as hawqwlwopO54.32 Body mass index (BMI) 32.0-32.9, adult
[2018-04-22 12:19] VITALS: BP 126/82
--- NOTE | 2018-04-22 12:44 | UC ---
Throat Pain/Nasal Randall HPI - HPI Summary HPI Summary: 2 days of sore throat and her 'adenoids' are bothering her. she also reports + tonsil stones causing pain. - History of Current Complaint Chief Complaint: UCGeneralIllness Stated Complaint: SORE THROAT Time Seen by Provider: 04/22/18 12:14 Hx Obtained From: Patient Hx Last Menstrual Period: ~04/16/18 Pain Intensity: 4 Pain Scale Used: 0-10 Numeric Cough: None - Allergies/Home Medications Allergies/Adverse Reactions: Allergies Allergy/AdvReac Type Severity Reaction Status Date / Time hydrocodone Allergy Itching Verified 04/22/18 12:15 And Disorientation oxycodone Allergy Itching Verified 04/22/18 12:15 and Disorientation Home Medications: Home Medications NK [No Home Medications Reported] 04/22/18 [History Confirmed 04/22/18] PMH/Surg Hx/FS Hx/Imm Hx Previously Healthy: Yes - Surgical History Surgical History: Yes Surgery Procedure, Year, and Place: right breast biopsy - 03/22/13; cervical widening 12/05/15; - Family History Known Family History: Positive: None, Cardiac Disease, Diabetes - Social History Alcohol Use: Rare Substance Use Type: Marijuana Smoking Status (MU): Never Smoked Tobacco - Immunization History Most Recent Influenza Vaccination: no Review of Systems All Other Systems Reviewed And Are Negative: Yes Constitutional: Positive: Fatigue Skin: Positive: Other - feels her neck lymph nodes swelling. ENT: Positive: Sore Throat, Sinus Congestion, Sinus Pain/Tenderness Respiratory: Positive: Negative Cardiovascular: Positive: Negative Neurological: Negative: Headache Physical Exam Triage Information Reviewed: Yes Appearance: Well-Appearing Vital Signs: Initial Vital Signs Temp 98 F 04/22/18 12:11 Pulse 73 04/22/18 12:11 Resp 16 04/22/18 12:11 BP 126/82 04/22/18 12:11 Pulse Ox 99 04/22/18 12:11 Vital Signs Reviewed: Yes ENT: Positive: Pharyngeal erythema, Nasal congestion, Nasal drainage, TMs normal , Uvula midline. Negative: Tonsillar swelling - no tonsil stones noted., Tonsillar exudate Neck: Positive: No Lymphadenopathy, Tenderness @ - ant. cervical L side Respiratory Exam: Normal Cardiovascular Exam: Normal Skin: Negative: Rashes Throat Pain/Nasal Course/Dx - Course Assessment/Plan: Viral pharyngitis x 2 days. rapid strep neg. Vitals good, pt stable. comfort measures for tx. of note no tonsil stones noted. - Differential Dx/Diagnosis Differential Diagnosis/HQI/PQRI: Laryngitis, Pharyngitis Provider Diagnosis: Viral pharyngitis Discharge - Sign-Out/Discharge Documenting (check all that apply): Patient Departure All imaging exams completed and their final reports reviewed: No Studies - Discharge Plan Condition: Good Disposition: HOME Patient Education Materials: Pharyngitis (ED) Referrals: Jaspreet Roque MD [Primary Care Provider] - Additional Instructions: If not improving please follow up with your pcp - Billing Disposition and Condition Condition: GOOD Disposition: Home
== END 2018-04-22 13:13 | disposition home or self-care (01) ==
LOC: UCCORT 11:31
DX: J02.8 Acute pharyngitis due to other specified organisms (principal); Z88.5 Allergy status to narcotic agent
CPT/HCPCS: 87651; 99211; G0463

== ENCOUNTER 2018-10-05 14:39 | Emergency (ER) | payer OTHER ==
[2018-10-05 16:40] LABS: ABS Basophils 0.1 10^3/ul (0-0.2); ABS Eosinophils 0.1 10^3/ul (0-0.6); ABS Lymphocytes 2.9 10^3/ul (1.0-4.8); ABS Monocytes 0.9 10^3/ul (0-0.8); ABS Neutrophils 5.8 10^3/ul (1.5-7.7); Eosinophil % 0.8 %; Hematocrit 36 % (35-47); Hemoglobin 12.3 g/dL (12.0-16.0); Lymphocyte % 29.6 %; Mean Corpuscular HGB Conc 34 g/dL (31-36); Mean Corpuscular Hemoglobin 28 pg (27-31); Mean Corpuscular Volume 82 fL (80-97); Mean Platelet Volume 7.6 fL (7.4-10.4); Nucleated Red Blood Cells % 0.1; Platelet Count 387 10^3/uL (150-450); Red Cell Distribution Width 13 % (10-15); White Blood Count 9.8 10^3/uL (3.5-10.8)
--- NOTE | 2018-10-05 16:46 | ED ---
Abdominal Pain/Female - HPI Summary HPI Summary: This patient is a 33 year old F presenting to [facility] accompanied by her significant other with a chief complaint of intermittent ABD cramping since last week. Patient reports pink discharge, increased frequency of urination, and fatigue. Patient states that she had a benign pituitary tumor removed in [place]. The patient rates the pain 6/10 in severity. Symptoms aggravated by movement. Symptoms alleviated by rest. She states that she had recently found out that she is , A1. PMHx of thyroid disease and diabetes are denied. She states that her previous menstrual cycle was heavy. Patient denies any fever, chills, erythema of eyes, sore throat, CP, SOB, cough , N/V, dysuria, hematuria, myalgia, edema, rash, or dizziness. Patient does not have diabetes or thyroid disease. She is an occasional marijuana smoker, but does not do any other substances or drink alcohol. - History of Current Complaint Chief Complaint: EDAbdPain Stated Complaint: ABD PAIN PER PT Time Seen by Provider: 10/05/18 16:22 Hx Obtained From: Patient, Family/Transfer Station Attendant - significant other Hx Last Menstrual Period: ~04/16/18 ?: Yes Onset/Duration: Sudden Onset, Lasting Weeks - 1, Still Present Timing: Intermittent Episode Lasting Severity Initially: Moderate Severity Currently: Moderate Pain Intensity: 6 Pain Scale Used: 0-10 Numeric Location: Other - upper abdomen Character: Cramping Aggravating Factor(s): Movement Alleviating Factor(s): Other: Associated Signs and Symptoms: Positive: Urinary Symptoms - increased frequency of urination, Vaginal Discharge - pink, Other: - positive - ABD cramps. negative any chills, erythema of eyes, sore throat, SOB, dysuria, hematuria, myalgia, edema, rash, or dizziness.. Negative: Fever, Cough, Chest Pain, Dizzy , Nausea, Vomiting Allergies/Adverse Reactions: Allergies Allergy/AdvReac Type Severity Reaction Status Date / Time hydrocodone Allergy Itching Verified 10/05/18 14:51 And Disorientation oxycodone Allergy Itching Verified 10/05/18 14:51 and Disorientation PMH/Surg Hx/FS Hx/Imm Hx Previously Healthy: No Endocrine/Hematology History: Denies: Hx Diabetes, Hx Thyroid Disease Cardiovascular History: Denies: Hx Hypertension, Hx Pacemaker/ICD Respiratory History: Reports: Hx Asthma Denies: Hx Chronic Obstructive Pulmonary Disease (COPD) GI History: Denies: Hx Ulcer History: Denies: Hx Renal Disease Sensory History: Denies: Hx Hearing Aid Neurological History: Reports: Other Neuro Impairments/Disorders - PAIN CLINIC PATIENT Psychiatric History: Denies: Hx Panic Disorder - Surgical History Surgical History: Yes Surgery Procedure, Year, and Place: right breast biopsy - 03/22/13; cervical widening 12/05/15; Infectious Disease History: No Infectious Disease History: Denies: Hx Clostridium Difficile, Hx Hepatitis, Hx Human Immunodeficiency Virus (HIV), Hx of Known/Suspected MRSA, Hx Shingles, Hx Tuberculosis, Hx Known/ Suspected VRE, Hx Known/Suspected VRSA, History Other Infectious Disease, Traveled Outside the [place] in Last 30 Days - Family History Known Family History: Positive: Cardiac Disease, Diabetes - Social History Alcohol Use: Rare Substance Use Type: Reports: Marijuana - occasional Hx Tobacco Use: No Smoking Status (MU): Never Smoked Tobacco Do You Chew or Dip Tobacco: No Have You Chewed or Dipped Tobacco in the LAST YEAR: No Have You Smoked in the Last Year: No Review of Systems Positive: Fatigue. Negative: Fever, Chills Negative: Erythema Negative: Sore Throat Negative: Chest Pain Negative: Shortness Of Breath, Cough Positive: Abdominal Pain - and ABD cramps. Negative: Vomiting, Nausea Positive: discharge - pink vaginal discharge, frequency - increased frequency of urination . Negative: dysuria, hematuria Negative: Myalgia, Edema Negative: Rash Neurological: Other - negative - dizziness All Other Systems Reviewed And Are Negative: Yes Physical Exam - Summary Physical Exam Summary: Constitutional: Well-developed, Well-nourished, Alert. (-) Distressed Skin: Warm, Dry HENT: Normocephalic; Atraumatic Eyes: Conjunctiva normal Neck: Musculoskeletal ROM normal neck. (-) JVD, (-) Stridor, (-) Tracheal deviation Cardio: Rhythm regular, rate normal, Heart sounds normal; Intact distal pulses; The pedal pulses are 2+ and symmetric. Radial pulses are 2+ and symmetric. (-) Murmur Pulmonary/Chest wall: Effort normal. (-) Respiratory distress, (-) Wheezes, (-) Rales Abd: Soft, (-) tenderness, (-) Distension, (-) Guarding, (-) Rebound Musculoskeletal: (-) Edema Lymph: (-) Cervical adenopathy Neuro: Alert, Oriented x3 Psych: Mood and affect Normal Triage Information Reviewed: Yes Vital Signs On Initial Exam: Initial Vitals Temp Pulse Resp BP Pulse Ox 98.3 F 85 16 137/104 96 10/05/18 14:48 10/05/18 14:48 10/05/18 14:48 10/05/18 14:48 10/05/18 14:48 Vital Signs Reviewed: Yes Diagnostics - Vital Signs Vital Signs Temp Pulse Resp BP Pulse Ox 10/05/18 14:48 98.3 F 85 16 137/104 96 - Laboratory Lab Results: Lab Results 10/05/18 Range/Units 16:28 WBC 9.8 (3.5-10.8) 10^3/uL RBC 4.40 (3.70-4.87) 10^6 /uL Hgb 12.3 (12.0-16.0) g/dL Hct 36 (35-47) % MCV 82 (80-97) fL MCH 28 (27-31) pg MCHC 34 (31-36) g/dL RDW 13 (10-15) % Plt Count 387 (150-450) 10^3/uL MPV 7.6 (7.4-10.4) fL Neut % (Auto) 59.5 % Lymph % (Auto) 29.6 % [place] % (Auto) 9.4 % Eos % (Auto) 0.8 % Baso % (Auto) 0.7 % Absolute Neuts (auto) 5.8 (1.5-7.7) 10^3/ul Absolute Lymphs (auto) 2.9 (1.0-4.8) 10^3/ul Absolute Monos (auto) 0.9 H (0-0.8) 10^3/ul Absolute Eos (auto) 0.1 (0-0.6) 10^3/ul Absolute Basos (auto) 0.1 (0-0.2) 10^3/ul Absolute Nucleated RBC 0.0 10^3/ul Nucleated RBC % 0.1 Result Diagrams: 10/05/18 16:28 10/05/18 16:28 Lab Statement: Any lab studies that have been ordered have been reviewed, and results considered in the medical decision making process. Abdominal Pain Fem Course/Dx - Course Course Of Treatment: his patient is a 33 year old F presenting to [facility] accompanied by her significant other with a chief complaint of intermittent ABD cramping since last week. Patient reports pink discharge, increased frequency of urination, and fatigue. Patient states that she had a benign pituitary tumor removed in [place]. The patient rates the pain 6/10 in severity. Symptoms aggravated by movement. Symptoms alleviated by rest. She states that she had recently found out that she is , A1. PMHx of thyroid disease and diabetes are denied. She states that her previous menstrual cycle was heavy. Patient denies any fever, chills, erythema of eyes, sore throat, CP, SOB, cough , N/V, dysuria, hematuria, myalgia, edema, rash, or dizziness. Patient does not have diabetes or thyroid disease. She is an occasional marijuana smoker, but does not do any other substances or drink alcohol.nal marijuana smoke, but does not do drugs or drink alcohol. Physical exam shows no signifiant findings. Lab results show Absolute monos 0.9, carbon dioxide 21, BUN/creatinine ratio 27.5, glucose 101, lactic acid 0.4, AST 12. Final diagnoses are vaginal spotting and threatening miscarriage. Patient is agreeable to discharge. Patient was told to follow up with AAKASH Srivastava, within 2-3 days and to return to the ED for any new or worsening symptoms. - Diagnoses Provider Diagnoses: Vaginal spotting, Threatened miscarriage Discharge - Sign-Out/Discharge Documenting (check all that apply): Patient Departure - discharge Patient Received Moderate/Deep Sedation with Procedure: No - Discharge Plan Condition: Stable Disposition: HOME Patient Education Materials: Threatened Miscarriage (ED) Referrals: Jose Obrien MD [Medical Doctor] - 3 Days Additional Instructions: Follow up with AAKASH Srivastava, in 2-3 days. Return to the ED for any new or worsening symptoms. - Attestation Statements Document Initiated by Scribe: Yes Documenting Scribe: Tk Rivero Provider For Whom Dianaibe is Documenting (Include Credential): Dr. Wolf Rodriguez MD Scribe Attestation: Tk Downey and Alexis Rivero, scribed for Dr. Wolf Rodriguez MD on 10/05/18 at 1728. Status of Scribe Document: Ready
[2018-10-05 17:00] LABS: Albumin 4.4 g/dL (3.2-5.2); Albumin/Globulin Ratio 1.5 (1-3); BUN/Creatinine Ratio 27.5 (8-20); C Reactive Protein 2.84 mg/L (<8.01); Calcium 9.3 mg/dL (8.6-10.3); EGFR African American 170.2 (>60); EGFR Non-African American 140.7 (>60); Potassium 3.7 mmol/L (3.5-5.0); Total Bilirubin 0.2 mg/dL (0.2-1.0); Total Protein 7.4 g/dL (6.4-8.9)
[2018-10-05 17:03] LABS: HCG Pregnancy 152.39 mIU/mL
[2018-10-05 17:52] VITALS: BP 139/85
== END 2018-10-05 17:50 | disposition home or self-care (01) ==
LOC: ED 14:39
DX: O20.0 Threatened abortion (principal); O20.9 Hemorrhage in early pregnancy, unspecified; Z3A.00 Weeks of gestation of pregnancy not specified; Z88.5 Allergy status to narcotic agent
CPT/HCPCS: 36415; 80053; 83605; 83690; 84702; 85025; 86140; 99282

== ENCOUNTER 2019-05-11 23:40 | Inpatient (IN) | payer OTHER ==
--- NOTE | 2019-05-12 08:34 | PN ---
Progress Note - Progress Note Date of Service: 05/12/19 Note: Nurse called with elevated BP this AM. Consulted with Dr. Syed via phone. Plan: Call with 24hr urine results or persistent BPs >160/110 for 15 minutes. Vanessa ordered Cont monitoring pt's BPs Reevaluate after results of 24 hr urine and set plan.
[2019-05-12] MEDS: Acetaminophen TAB* 325 MG PO PRN (13:19)
[2019-05-12 14:06] LABS: Urine Total Volume OB 2425 mL
[2019-05-12 14:20] LABS: Ur TP Concentration Obstetric 111 mg/dL
--- NOTE | 2019-05-12 15:33 | PN ---
L&D Outpatient: Visit - Reproductive Information Estimated Due Date: 06/13/19 Gestational Age: 35 Weeks and 3 Days : 2 Para: 0 - Reason for Visit Visit Reason: Pt present last evening with persistent at home BPs of 160/100, headache and swelling. Pt c/o RUQ pain for several weeks. Pt denies vision changes, LOF or VB. - Antepartal Records Antepartal Record: Reviewed, Complicated by: - low lying placenta ( resolved) - Patient History Patient History Significant: Yes Patient History Significant For: pituitary tumor (removed), migraines, asthma Review of Systems Constitutional: Uncomfortable CV Complaint: No Respiratory: Shortness of Breath: No Gastrointestinal: No Nausea/Vomiting, Normal Bowel Movement Genitourinary: No Dysuria, No Bleeding, No Leaking Fluid Neurological: No Visual Changes, Headache Movement: Normal L&D Outpatient: Exam Vitals - Most Recent: BP: 166/82, repeat 144/79, T: 97.3, R:18 Lab Values - Entire Visit: Laboratory Tests 05/12/19 12:08 Urine Collection Time 24 Ur 24 Hour Volume 2425 Ur Total Protein Conc 111 Ur Total Protein 24 Hr 2691 H* - Abdominal Exam Abdomen Exam: Fundal Height Consistent with Dates - Membranes Membrane Status: Intact - Ultrasound/Biophysical Profile Ultrasound Findings: Amniotic fluids: WNL, no previa, EFW: WNL EFM Findings - External Monitor Findings Baseline Heart Rate: 150 External Monitor Findings: Accelerations Present, No Pattern of Variable or Late Decelerations, Variability Moderate, Baseline Stable Contractions: None L&D Outpatient: Asses/Plan Assessment: 33 y.o. , 35w3d EGA, Preeclampsia with moderate-severe features, Cat I NST, EFW and NICOLÁS: WNL, GBS unknown - Discharge Diagnosis Discharge Diagnosis: PreEclampsia Plan: Admit as Inpatient, Other - Report given to Dr. Syed, plan Betamethasone, GBS swab, repeat CBC and CMP tomorrow. Neonatalogy aware of pt and condition.
[2019-05-12] MEDS ORDERED: Lactated Ringers 1000 ML Bag* 1,000 ML IV ONE (15:59)
[2019-05-12] MEDS ORDERED: Buffered Lidocaine 1% SYRIN* 1 ML/SYRINGE INTRADERM ONE (15:59)
--- NOTE | 2019-05-12 15:59 | HP ---
General Information - Reason for Visit Pt with new onset elevated BPs and 2g proteinuria = preeclampsia - General Information Maternal Age: 33 Grav: 2 Para: 0 SAB: 0 IEA: 1 Estimated Due Date: 06/13/19 Determined By: LMP Maternal Blood Type and Rh: A Negative - Results this Serology/RPR Result: Non-Reactive Rubella Result: Non-Immune HBsAg Result: Negative HIV Result: Negative Past Medical History Pertinent Past Medical History: See Records Past Medical History Comment: migraines, pituitary tumor (removed), exercise induce asthma Pertinent Past Surgical History: See Records Pertinent Family History: Non-Contributory - Antepartal Records Antepartal Records: Reviewed, Uncomplicated Review of Systems Constitutional: Comfortable CV Complaint: No Respiratory: Shortness of Breath: No Gastrointestinal: No Nausea/Vomiting, Normal Bowel Movement Genitourinary: No Dysuria, No Bleeding, No Leaking Fluid - Reports white discharge and h/o BV infection. Musculoskeletal: No Complaint Neurological: Headache - Has h/o migraines but this is slightly worse than her normal headache Movement: Normal Exam Allergies/Adverse Reactions: Allergies hydrocodone Allergy (Verified 10/05/18 14:51) Itching And Disorientation oxycodone Allergy (Verified 10/05/18 14:51) Itching and Disorientation Lab Values - Entire Visit: Laboratory Tests 05/12/19 12:08 Urine Collection Time 24 Ur 24 Hour Volume 2425 Ur Total Protein Conc 111 Ur Total Protein 24 Hr 2691 H* - Measurements Height: 5 ft 3 in Weight: 190 lb Weight in lbs: 190.793664 Body Mass Index (BMI): 33.6 Pre- Weight: 176 lb Weight Gained This : 14 lbs and 0 ozs - Exam Breast: Breast Exam Deferred Extremities: No Edema Heart: Normal Rhythm/Heart Sounds HEENT: No Significant Findings Lungs: Clear Bilaterally Rectal: Rectal Exam Deferred Reflexes: DTR 2+ - Abdominal Exam Abdomen Exam: Non-Tender, Fundal Height Consistent with Dates - Ultrasound/Biophysical Profile Ultrasound Status: Radiology Department Full Exam Targeted Exam Findings See L&D Outpatient Visit Provider Note for Findings: Yes Cervical Exam: Closed EFM Findings - External Monitor Findings Baseline Heart Rate: 140 External Monitor Findings: Accelerations Present, No Pattern of Variable or Late Decelerations, Variability Moderate, Baseline Stable Contractions: None Assessment/Plan - Assessment @35.3wks GA with preeclampsia. Currently no indiciation for emergent delivery. Discussed diagnosis with pt and plan for betamethasone with delivery s/p completion. Likely start cervical ripening tomorrow evening since her cervix is not favorable. Possible vaginitis. - Obstetrical Risk Factors Obstetrical Risk Factors: GBS Unknown - swab collected, , PreEclampsia - Plan Plan: Observe - Monitor BPs, repeat labs tomorrow, start induction 05/13, Steroids
[2019-05-12] MEDS ORDERED: Lactated Ringers 1000 ML Bag* 1,000 ML IV SCH (16:00)
[2019-05-12] MEDS: Betamethasone INJ* 6 MG/ML 5 ML VIAL (30 MG) IM SCH (16:20)
[2019-05-12] MEDS ORDERED: diPHENhydraMINE LIQ* 12.5 MG/5 ML UDC PO PRN (20:29)
[2019-05-12 21:24] LABS: Urine Benzodiazepine Screen None Detected (None Detect); Urine Opiates Screen None Detected (None Detect)
[2019-05-13] MEDS: Al Hydrox/Mg Hydrox/Simet LIQ* 30 ML UDC PO PRN ×3 (00:29→19:25)
--- NOTE | 2019-05-13 12:26 | PN ---
Progress Note - Progress Note Date of Service: 05/13/19 SOAP: Subjective: [Patient is a 33 y/o with a oregnancy at 35 5/7 weeks and a diagnosis of pre- eclampsia, admitted on 05/12/19. She is post 1 dose of Betamethasone yesterday.] Objective: [Vital signs Temp range afebrile since admission Pulse range 56-85bpm BP range today 155-142 systolic/ 69-85 diastolic Laboratory Results - last 24 hr 05/12/19 05/12/19 12:08 20:55 Urine Collection Time 24 Ur 24 Hour Volume 2425 Ur Total Protein Conc 111 Ur Total Protein 24 Hr 2691 H* Urine Opiates Screen None detected Ur Barbiturates Screen None detected Ur Phencyclidine Scrn None detected Ur Amphetamines Screen None detected U Benzodiazepines Scrn None detected Urine Cocaine Screen None detected U Cannabinoids Screen None detected 05/11/19 CBC and LFT's wnl Assessment: [Lungs CTA b/l CV RRR Abdomen soft, gravid, + movement, not tender Reflexes brisk+3 at /bl LE with b/l pedal edema.] Plan: [I/P - preeclampsia with soradic systolic BP's in the severe range and no other laboratory findings with severe features. CBNC, Comprehensive metabolic panel pending today. Continue current care, second dose of Betamethasone today. Continue bedrest unless develops s/sx c/w severe preeclampsia.]
[2019-05-13 12:31] LABS: ABS Lymphocytes 1.7 10^3/ul (1.0-4.8); ABS Monocytes 1.5 10^3/ul (0-0.8); ABS Neutrophils 12.4 10^3/ul (1.5-7.7); Hematocrit 32 % (35-47); Hemoglobin 10.8 g/dL (12.0-16.0); Lymphocyte % 10.9 %; Mean Corpuscular HGB Conc 33 g/dL (31-36); Mean Corpuscular Hemoglobin 28 pg (27-31); Mean Corpuscular Volume 84 fL (80-97); Mean Platelet Volume 8.6 fL (7.4-10.4); Platelet Count 415 10^3/uL (150-450); Red Blood Count 3.87 10^6 /uL (3.70-4.87); Red Cell Distribution Width 14 % (10-15); White Blood Count 15.6 10^3/uL (3.5-10.8)
[2019-05-13 12:37] LABS: INR 0.89 (0.82-1.09)
[2019-05-13 14:03] LABS: Albumin 3.7 g/dL (3.2-5.2); Potassium 4.2 mmol/L (3.5-5.0); Total Bilirubin 0.2 mg/dL (0.2-1.0)
[2019-05-13 14:09] LABS: Albumin/Globulin Ratio 1.1 (1-3); BUN/Creatinine Ratio 21.9 (8-20); EGFR Non-African American 108.2 (>60); Globulin 3.4 g/dL (2-4); Total Protein 7.1 g/dL (6.4-8.9); Uric Acid 5.9 mg/dL (2.3-6.6)
[2019-05-13] MEDS: Betamethasone INJ* 6 MG/ML 5 ML VIAL (30 MG) IM SCH (16:27)
[2019-05-13] MEDS: Acetaminophen TAB* 325 MG PO PRN (18:04)
[2019-05-13] MEDS ORDERED: Dinoprostone* 10 MG VAG.SUPP VAGINAL ONE (19:51)
[2019-05-14] MEDS: Al Hydrox/Mg Hydrox/Simet LIQ* 30 ML UDC PO PRN (05:58)
--- NOTE | 2019-05-14 09:37 | PN ---
Progress Note - Progress Note Date of Service: 05/14/19 Note: 33 yo with induction for preeclampsia, pt uncomfortable this am with contractions and vaginal soreness. bp 140's / 80's . cervidil removed however pt could not tolerate exam. discussed use of epidural for pain management . pt does not like the side effects of narcotics when she has gotten them. Though listed as an allergy her symptoms are itching and mental fogginess which are more consistent with a side effect. Pt and understand that the goal at this point is to move toward delivery . If induction is unsuccessful then we would proceed with section. Pt. voiced understanding. Will attempt exam once adequate pain relief is in place. Pt has had 2 doses of betamethasone.
[2019-05-14] MEDS ORDERED: OBEPIDURAL* 250 ML EPIDURAL ONE (09:39)
[2019-05-14] MEDS ORDERED: Famotidine TAB* 20 MG PO PRN (10:24)
[2019-05-14] MEDS ORDERED: Phenylephrine 40 MCG/ML SYRINGE IV PUSH PRN (10:24)
[2019-05-14] MEDS ORDERED: Sodium Citrate/Citric Acid* 15 ML UDC PO PRN (10:24)
[2019-05-14] MEDS ORDERED: Lactated Ringers 1000 ML Bag* 1,000 ML IV ONE (10:24)
[2019-05-14] MEDS ORDERED: EPHEDrine (Pressors)* 50 MG/ML VIAL IV PUSH PRN (10:24)
[2019-05-14] MEDS ORDERED: OBEPIDURAL* 250 ML EPIDURAL SCH (11:00)
[2019-05-14] MEDS ORDERED: Lactated Ringers 1000 ML Bag* 1,000 ML IV SCH ×2 (11:00→18:00)
[2019-05-14] MEDS ORDERED: Oxytocin in LR* 20 UNITS/1,000 ML BAG IVPB SCH ×2 (11:00→17:39)
[2019-05-14] MEDS ORDERED: Labetalol IV* 5 MG/ML 20 ML VIAL IV PUSH ONE (15:23)
[2019-05-14] MEDS ORDERED: ceFOXitin 2 GM IVPREMIX* 2 GM/50 ML BAG IVPB ONE (15:58)
[2019-05-14] MEDS ORDERED: Sodium Citrate/Citric Acid* 15 ML UDC ONE (15:59)
[2019-05-14] MEDS ORDERED: Sodium Citrate/Citric Acid* 15 ML UDC PO ONE (15:59)
[2019-05-14] MEDS ORDERED: ceFOXitin 2 GM IVPREMIX* 2 GM/50 ML BAG ONE (15:59)
--- NOTE | 2019-05-14 16:15 | PN ---
Progress Note - Progress Note Date of Service: 05/14/19 Note: pt with an episode of hypertension with sbp of 160's x2 . given labetolol with good response . ve with thick closed posterior cervix. Fhr reassuring. D/W pt and partner lack of progress and worsening severity of her preeclampsia. recommend a section at this point . baby has gotten steroid for improvement of lung function. discussed the risks benefits alternatives and indications of section . questions answered. Brock Knapp MD
[2019-05-14] MEDS ORDERED: Morphine PF AMP (0.5MG/ML)* 5 MG/10 ML AMP ONE (16:27)
[2019-05-14] MEDS ORDERED: Lidocaine 2% w/ EPI 1:200,000* 20 ML SDV VIAL ONE (16:27)
[2019-05-14] MEDS ORDERED: fentaNYL* 50 MCG/ML 2 ML VIAL (100 MCG VIAL) ONE (16:56)
[2019-05-14] MEDS ORDERED: Naloxone* 0.4 MG/ML 1 ML VIAL IV PRN ×2 (17:04→17:17)
[2019-05-14] MEDS ORDERED: Ondansetron INJ* 2 MG/ML VIAL IV PRN (17:04)
[2019-05-14] MEDS ORDERED: diPHENhydraMINE IV* 50 MG/ML 1 ml VIAL (BENADRYL) IV PRN (17:04)
[2019-05-14] MEDS ORDERED: Nalbuphine* 10 MG/ML 1 ML VIAL IV PRN (17:04)
[2019-05-14] MEDS ORDERED: fentaNYL* 50 MCG/ML 5 ML VIAL (250 MCG VIAL) ONE (17:09)
[2019-05-14] MEDS ORDERED: Acetaminophen IV 1GM/100ML * 1,000 MG/100 ML VIAL IVPB ONE (17:17)
[2019-05-14] MEDS ORDERED: OXYTOCIN* 10 UNITS/ML 1 ML VIAL ONE (17:31)
[2019-05-14] MEDS ORDERED: oxyCODONE TAB* 5 MG TAB PO PRN ×2 (17:37)
[2019-05-14] MEDS ORDERED: Witch Hazel PAD* JAR TOPICAL PRN (17:37)
[2019-05-14] MEDS ORDERED: Zolpidem TAB* 5 MG PO PRN (17:37)
[2019-05-14] MEDS ORDERED: Dibucaine 1% 28.35 GM TUBE PR PRN (17:37)
[2019-05-14] MEDS ORDERED: Glycerin ADULT SUPP PR PRN (17:37)
[2019-05-14] MEDS: Ibuprofen TAB* 600 MG PO SCH (18:42)
[2019-05-14] MEDS: Simethicone TAB* 80 MG TAB.CHEW PO SCH (20:37)
[2019-05-14] MEDS: Docusate CAP* 100 MG PO SCH (20:37)
[2019-05-15] MEDS: Ibuprofen TAB* 600 MG PO SCH ×4 (00:41→23:50)
[2019-05-15] MEDS ORDERED: diPHENhydraMINE IV* 50 MG/ML 1 ml VIAL (BENADRYL) IV ONE (02:00)
--- NOTE | 2019-05-15 05:05 | OP ---
OPERATIVE REPORT: DATE OF OPERATION: 05/14/19 DATE OF : 89 SURGEON: Alan Knapp MD [employer] REPRESENTATIVE: Jamil Khan CNM ANESTHESIA: Epidural. PRE-OP DIAGNOSES: 1. Failed induction. 2. Preeclampsia. POST-OP DIAGNOSES: 1. Failed induction. 2. Preeclampsia. OPERATIVE PROCEDURE: Low transverse section. INDICATIONS: This is a 33-year-old, 1, para 0, who presented with significant proteinuria an d hypertension, who is admitted at 35 plus weeks, given steroids and then started with yousif ction. She received a dose of Cervidil with little change in her cervix. She was very uncomfortable in the morning of delivery and received an epidural. Pitocin was started and after 6 hours, her sys tolic blood pressure was found to be 160s consecutively. She received labetalol. She was checked an d found to be still close. At that point, the risks, benefits, alternatives, and indications of cesa rean section were discussed with the patient and after discussion, the patient decided that this was reasonable and we proceeded with at that time. ESTIMATED BLOOD LOSS: 600 cc. SPECIMEN: Includes placenta. FINDINGS: Include a viable female, Apgars 8 and 9, weight was 5 pounds 6 ounces. Normal tubes and ov aleida. DESCRIPTION OF PROCEDURE: The patient identified, procedure identified as a low transverse section. The patient was taken to the operating room, prepped and draped in the usual fashion, in e left lateral recumbent position under epidural anesthesia. A Pfannenstiel incision was made in the abdomen and carried down through fat, fascia, and peritoneum. A transverse incision was made in the lower uterine segment and extended laterally using blunt dissection. The above infant was delivered through the incision with ease. The cord was doubly clamped and cut and the was handed to e awaiting legal secretary. Cord blood was obtained. Placenta delivered spontaneously. The uterus was wiped out with wet lap sponge. The uterine incision was then closed using 0 Polysorb in a running f ashion. A second layer was used to imbricate the first layer. Good hemostasis was verified. The pe ritoneum was then closed using 3-0 Vicryl in a running fashion. Hemostasis was achieved in the subre ctus layers. The fascia was closed using 0 Polysorb in a running fashion. Good hemostasis achieved in subcu. 3-0 Vicryl sutures were placed in the Lalito's fascia and the skin was closed with 4-0 Mon ocryl in a subcuticular fashion. All sponge and instrument counts were correct and the patient retur lily to the recovery room in stable condition. [id number]/[facility] #: [id number]
[2019-05-15] MEDS: Acetaminophen TAB* 325 MG PO PRN ×3 (05:29→20:37)
[2019-05-15 06:58] LABS: ABS Lymphocytes 2.1 10^3/ul (1.0-4.8); ABS Monocytes 1.5 10^3/ul (0-0.8); ABS Neutrophils 12.9 10^3/ul (1.5-7.7); Hematocrit 23 % (35-47); Hemoglobin 7.8 g/dL (12.0-16.0); Lymphocyte % 12.8 %; Mean Corpuscular HGB Conc 34 g/dL (31-36); Mean Corpuscular Hemoglobin 28 pg (27-31); Mean Corpuscular Volume 84 fL (80-97); Mean Platelet Volume 8.6 fL (7.4-10.4); Nucleated Red Blood Cells % 0.1; Platelet Count 305 10^3/uL (150-450); Red Blood Count 2.77 10^6 /uL (3.70-4.87); Red Cell Distribution Width 14 % (10-15); White Blood Count 16.5 10^3/uL (3.5-10.8)
[2019-05-15] MEDS: Ferrous Gluconate TAB* 324 MG TAB PO SCH ×2 (09:29→20:37)
[2019-05-15] MEDS: Docusate CAP* 100 MG PO SCH ×3 (09:29→20:37)
[2019-05-15] MEDS: Simethicone TAB* 80 MG TAB.CHEW PO SCH ×4 (09:29→20:37)
[2019-05-16] MEDS: Acetaminophen TAB* 325 MG PO PRN ×4 (03:53→20:54)
[2019-05-16] MEDS: Ibuprofen TAB* 600 MG PO SCH ×3 (07:36→16:02)
[2019-05-16] MEDS: Ferrous Gluconate TAB* 324 MG TAB PO SCH ×2 (07:56→20:54)
[2019-05-16] MEDS: Docusate CAP* 100 MG PO SCH ×3 (07:57→23:55)
[2019-05-16] MEDS: Simethicone TAB* 80 MG TAB.CHEW PO SCH ×4 (07:57→20:54)
[2019-05-16] MEDS ORDERED: Tetan/Diph/Pertus SYR(Tdap)* 0.5 ML SYR(BOOSTRIX) use SYR contains LATEX IM ONE (14:13)
[2019-05-16] MEDS ORDERED: Measles, Mumps,Rubella VACC* 0.5 ML/VIAL ONE (14:13)
[2019-05-16] MEDS ORDERED: Varicella Virus Vaccine Live* 0.5 ML VIAL SUBCUT ONE (15:00)
[2019-05-17] MEDS: Ibuprofen TAB* 600 MG PO SCH ×5 (00:27→20:29)
[2019-05-17] MEDS: Acetaminophen TAB* 325 MG PO PRN ×5 (02:32→20:29)
[2019-05-17] MEDS: Docusate CAP* 100 MG PO SCH ×3 (08:07→21:00)
[2019-05-17] MEDS: Ferrous Gluconate TAB* 324 MG TAB PO SCH ×2 (08:08→20:29)
[2019-05-17] MEDS: Simethicone TAB* 80 MG TAB.CHEW PO SCH ×4 (08:08→21:00)
[2019-05-17] MEDS: Labetalol TAB* 100 MG PO SCH (20:30)
[2019-05-18] MEDS: Ibuprofen TAB* 600 MG PO SCH ×4 (05:00→20:19)
[2019-05-18] MEDS: Simethicone TAB* 80 MG TAB.CHEW PO SCH ×4 (08:32→20:23)
[2019-05-18] MEDS: Docusate CAP* 100 MG PO SCH ×3 (08:32→20:19)
[2019-05-18] MEDS: Acetaminophen TAB* 325 MG PO PRN (08:41)
[2019-05-18] MEDS: Labetalol TAB* 100 MG PO SCH (08:42)
[2019-05-18] MEDS: Ferrous Gluconate TAB* 324 MG TAB PO SCH ×2 (08:42→20:18)
[2019-05-18] MEDS ORDERED: Labetalol TAB* 100 MG PO ONE (09:48)
[2019-05-18] MEDS ORDERED: Metoclopramide TAB* 10 MG PO PRN (09:50)
--- NOTE | 2019-05-18 14:53 | PN ---
Progress Note - Progress Note Date of Service: 05/18/19 Note: Pt is a 33 y/o POD#4 s/p pLTCS at term secondary to PreE with severe features remote from delivery. Post operative course has been complicated by persistent elevated blood pressures and headache. BP's treated with labetalol 200mg BID with good effect. Pt has history of Migraine DAVID and Pituitary Tumor, s/p resection. When asked if this is the worse DAVID of her life, she states that it is not. AVSS, Afebrile Gen: nad, aaox3 CV: RRR Pulm: CTABl Abd: soft, nd, appropriately ttp, fundus firm below the U Incision: c/d/i Ext: warm, nttp A/P: 33 y/o POD#4 s/p pLTCS at term 2/2 to PreE with severe features remote from delivery, post operative course complicated by persistent elevated BP's and DAVID: - Elevated BP's - pt has had good response to Labetalol 200mg BID, will continue to monitor BP's closely - DAVID - pt has complicated history including pituitary tumor and resection, history of migraines. Consult placed to Neurology who recommends Chem Profile, TSH/T4 and MRI of brain without contrast. Neuro to complete consult, awaiting final report. Will await return and review of MRI by Neurology. Continue to monitor closely. - Otherwise meeting all other post operative and post milestones DO JENNIFER Marquez
[2019-05-18] MEDS ORDERED: Magnesium Oxide TAB* 400 MG PO SCH (15:00)
[2019-05-18] MEDS: Magnesium Oxide TAB* 400 MG PO SCH ×2 (15:08→20:18)
[2019-05-18 15:48] LABS: Albumin 3.2 g/dL (3.2-5.2); Albumin/Globulin Ratio 1.3 (1-3); BUN/Creatinine Ratio 25.5 (8-20); Calcium 8.2 mg/dL (8.6-10.3); EGFR Non-African American 128.9 (>60); Globulin 2.5 g/dL (2-4); Potassium 3.9 mmol/L (3.5-5.0); Total Bilirubin 0.2 mg/dL (0.2-1.0); Total Protein 5.7 g/dL (6.4-8.9)
[2019-05-18 15:52] LABS: TSH (Thyroid Stimulating Horm) 2.59 mcIU/mL (0.34-5.60)
[2019-05-18 15:56] LABS: Free T4 0.95 ng/dL (0.61-1.12)
--- NOTE | 2019-05-18 16:48 | CONS ---
CONSULTATION REPORT: DATE OF CONSULT: 05/18/2019 PATIENT OF: Dr. Rm. HISTORY OF PRESENT ILLNESS: This is a 33-year-old woman who is 4 days , who is a 2, AB 1 mom and delivered at 35 weeks and 2 days. was complicated by pedal edema and elevated blood pressures as well as proteinuria and was diagnosed with preeclampsia. She has also had headaches. She has a chronic history of migraine headaches, which are described as throbbing global headaches with scotomata in the past. The headaches that she has had occurred 2 weeks prior to delivery and have persisted , unchanged since then and she is now so far for the past 4 days without any significant change. They are on a daily basis and they are described as frontal burning and not particularly throbbing. Her primary symptom with this has been some black and white scotomata in all luu that is intermittent as well as some blurry vision, but there is no double vision. The blurriness is in all directions of eye movement. It is not worse on the lateral gaze. The headache fluctuates throughout the day, but gets to be as severe as 9/10. She had an epidural as part of her for delivery, but she says that the headaches are not worse whether she lies down or stands up and they did not get worse after the epidural. Of note, she has a history of prolactinoma, status post removal by Dr. Chavarria at [place]. She has exercise-induced asthma. She is allergic to HYDROCODONE with itching and disorientation and she says that she tried Imitrex or Maxalt in the past without clear benefit and she does not want daily medicine. CURRENT MEDICATIONS: Include: 1. Ambien 5 mg as needed. 2. Tucks p.r.n. 3. Mylicon 80 mg daily. 4. Reglan p.r.n. 5. Mag-Ox 400 mg b.i.d. 6. Labetalol 200 mg b.i.d. 7. Glycerin p.r.n. 8. Colace 100 mg t.i.d. p.r.n. 9. Benadryl 12.5 mg p.r.n. insomnia. FAMILY HISTORY: Noncontributory. REVIEW OF SYSTEMS: Negative other than HPI. She notes that she has been up a lot with baby and she is . She also notes that her pedal edema is still present, but much improved from a few days ago. PHYSICAL EXAM: Temperature 98.1, pulse 81, respirations 20, blood pressure 141/ 74. She is alert and oriented with normal speech and comprehension. Cranial nerves II through XII were intact. She had full extraocular movements without disconjugate gaze. She could see fingers in all visual luu. She did not have any double vision when looking at the fingers. She was able to read. I was able to get a good look in her right disc, which was sharp. The left, she kept moving to avoid the light and I could not see that disc fully. Motor exam revealed normal tone and strength. [id number] intact. Sensation intact to light touch and vibration. Reflexes were 1+ in the arms, 3 at the knees with downgoing toes. DIAGNOSTIC STUDIES/LAB DATA: Labs include white count of 16.5 and hematocrit of 23 on 05/15/19. INR was normal on 05/13/19. CMP on 05/13/19 was normal. She had a tox screen when she came in on 05/12/19, which was negative. She had a brain MRI scan last in December 2017 consistent with a pituitary microadenoma. Currently, she had an MRI scan following surgery and she requested without contrast and did not want contrast for this. The scan is being ordered. IMPRESSION AND PLAN: I discussed with her that there are 2 possible processes that could be going on and could be associated with her headaches. One is posterior reversible encephalopathy syndrome. The other is she could have had a venous infarct causing headache. Her disc looked good. I think that this is unlikely and I discussed with her that depending on what her MRI scan shows it may show abnormalities that would lead us to get a contrast study as well or even an MRA/MRV, but we will see what the noncontrast study shows first. She feels that these headaches are different than her typical migraines, but they do sound migrainous with blurred vision and scotomata. If the MRI scan is normal, I will discuss with her further treatment for migraine. She is not interested at this point other than going on mag oxide as ordered by Dr. Rm. I think that in terms of treating migraine 200 twice a day would probably be sufficient. If the migraines persist and her blood pressure still needs to be treated, but if we have a choice of blood pressure medicine then something like verapamil might be appropriate that would help both her migrainous symptoms and her blood pressure. Thank you for sharing her case. [id number]/[facility] #: [id number] ROBIN
[2019-05-18] MEDS: Labetalol TAB* 200 MG PO SCH (20:20)
--- NOTE | 2019-05-18 21:56 | PN ---
Progress Note - Progress Note Date of Service: 05/18/19 Note: Error. See note from 2234 hours. DO JENNIFER Marquez
--- NOTE | 2019-05-18 22:37 | PN ---
Progress Note - Progress Note Date of Service: 05/18/19 Note: Reviewed patient with Neurologist Dr. Sellers after his consultation and review of MRI. Dr. Sellers reports that he reviewed the MRI with the patient's neurosurgeon at [facility] who previously operated on the patient and was able to compare the patient's past MRI's with this MRI. Per his report the MRI is unchanged and there is low suspicion for abnormal pituitary functioning. Will continue to monitor patient's BP's closely overnight and continue trial of Magnesium Oxide BID. Pt's vitals remain stable at this time and BP's improved. Pt reports at this time that her DAVID has been resolved x 2 hours and she feels the Magnesium Oxide is what has helped. Will continued to monitor closely overnight. Dr. Sellers plans to follow up with patient tomorrow prior to discharge. DO JENNIFER Marquez
[2019-05-19] MEDS: Ibuprofen TAB* 600 MG PO SCH (06:46)
[2019-05-19] MEDS: Labetalol TAB* 200 MG PO SCH (08:08)
[2019-05-19] MEDS: Ferrous Gluconate TAB* 324 MG TAB PO SCH (08:09)
[2019-05-19 09:53] VITALS: BP 130/66
[2019-05-19] MEDS: Magnesium Oxide TAB* 400 MG PO SCH (10:32)
--- NOTE | 2019-05-19 11:50 | PN ---
NEUROLOGICAL FOLLOWUP: DATE OF SERVICE: 05/19/19 PATIENT OF: Dr. Rm. HISTORY: This is a 33-year-old woman whom I saw in follow up of her headache. She notes that after she began mag oxide and states that for the first time in a few weeks her headaches felt better and she was headache free for several hours. She has a headache now, but it is milder. Her visual symptoms are still present, but improved. MEDICATIONS: Include: 1. Mag oxide 400 mg p.o. b.i.d. 2. Reglan as needed for headache. 3. Glycerin suppository p.r.n. 4. Ferrous gluconate 324 b.i.d. PHYSICAL EXAMINATION: On exam, temperature 98.8, pulse 86, respirations 16, blood pressure 130/66. She was alert and oriented with normal speech and comprehension. Cranial nerves II through XII were intact. Motor exam revealed normal tone and strength. She still had brisk reflexes of 3 in her legs, 2 in her arms. Chest: Clear. Cardiovascular: Regular rate and rhythm. Abdomen: Soft with positive bowel sounds. ASSESSMENT AND PLAN: I reviewed her MRI scan films last night and had them sent up to [place] to compare to her most recent films that had been done, this [place] [facility] [place]. Dr. Chavarria was on-call and he was their prior neurosurgeon and noted that the pituitary lesion looked unchanged compared to the prior film. He did not think that optic chiasm is being affected by this lesion and he was pleased and did not think that this was causing any side effect. He also thought that her pituitary was functioning well for her to go through her like she had. We did not think any steroids needed to be given due to pituitary dysfunction, but she did not think that she had, but was not opposed to steroids if needed in the future for her headaches. We discussed this with the patient in detail last night with Dr. Rm yesterday and Dr. Orr this morning. At this point, her headaches are not causing significant dysfunction and, from a neurological point of view, she can go home. I will see back in 3 months' time in my office to follow up for her migraines in general and if she has problems, will be back to see her in my office sooner. Thank you for sharing her case. [id number]/[facility] #: [id number] ROBIN
== END 2019-05-19 12:10 | disposition home or self-care (01) | DRG 540 ==
LOC: MCHOBOUT 23:40 → MCHOB 05-12 15:27
PROVIDERS: ADMIT Obstetrics & Gynecology; ATTEND Obstetrics & Gynecology
PROC: 3E033VJ Introduction of Other Hormone into Peripheral Vein, Percutaneous Approach (ICD-10-PCS; 2019-05-14)
PROC: 10907ZC Drainage of Amniotic Fluid, Therapeutic from Products of Conception, Via Natural or Artificial Opening (ICD-10-PCS; 2019-05-14)
PROC: 10D00Z1 Extraction of Products of Conception, Low, Open Approach (ICD-10-PCS; principal; 2019-05-14 16:36)
DX: O14.94 Unspecified pre-eclampsia, complicating childbirth (principal); O62.0 Primary inadequate contractions; O99.52 Diseases of the respiratory system complicating childbirth; J45.990 Exercise induced bronchospasm; Z3A.35 35 weeks gestation of pregnancy; Z37.0 Single live birth
CPT/HCPCS: 36415; 70551; 76815; 80053; 80307; 84156; 84439; 84443; 84550; 85025; 85610; 87070; 87077; 87480; 87510; 88307; 90707; 90715; A9270-GY; G0480; J0694; J0702; J1200; J2405; J2590; J3010